=== PATIENT | female | born 1950 | race Caucasian/White ===

== ENCOUNTER 2023-03-30 16:25 | Emergency (ER) | payer OTHER ==
--- OUTSIDE RECORDS SUMMARY | 2023-03-30 16:32 | XMS REPORT | Continuity of Care Document ---
:1950 Author Organization [facility] t Address [address] [place] [address] [place] [id number] Care Team Providers Name Role Phone Alfredo Farnsworth DO Primary Care Physician [phone] Devon MENDES, Majo Harris Attending Clinician Abbie RUBIN, Jim Lynne Attending Clinician [phone] Dulce Heredia MA Attending Clinician Unavailable Ana Sifuentes PA-C Attending Clinician Merrill Chilel MD Attending Clinician [email or web address]_R Attending Clinician Unavailable [email or web address]_R Attending Clinician Unavailable Provider , Not In System Attending Clinician Unavailable Siva MENDES, Rush Jenkins Attending Clinician Talia Corona MA Attending Clinician Unavailable Alfredo Farnsworth Attending Clinician Unavailable [email or web address]_[email or web address]_R Admitting Clinician Unavailable [email or web address]_R Admitting Clinician Unavailable Alfredo Farnsworth Admitting Clinician Unavailable Payers Payer Name Policy Type Policy Number Effective Date Expiration Date Tiana OLIVAS (MEDICARE [id number] 2021 REPLACEMENT PPO) 00:00:00 Problems Condition Condition Condition Status Onset Resolution Last Treating Co mments Source Name Details Category Date Date Treatment Clinician Date 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-L5 00:00: Hospita level level 00 l Spinal Spinal Disease Active [facility] stenosis stenosis 6-24 st of lumbar of lumbar 00:00: Hosp devonte region region 00 l Allergies, Adverse Reactions, Alerts Allergy Allergy Status Severity Reaction(s) Onset Inactive Treating Comm ents Source Name Type Date Date Clinician Neomycin Propensi Active Rash Method i -Bacitra ty to 11-16 st diandra-Poly adverse 00:00: Hospita myxin reaction 00 l s to drug bacitrac DA Active [facility]04 [place] [facility] polymyxi DA [facility] n B 05[facility]04 [place] 00:[facility]: [facility] Penicill DA Active [facility] ins [facility]04 [place] 00:[facility]: d [facility] Bacitrac Propensi Active Swelling Meth fady in ty to 05-04 st adverse 00:00: Hospita reaction 00 l s to drug Neomycin Propensi Active Swelling Meth fady ty to 05-04 st adverse 00:00: Hospita reaction 00 l s to drug Penicill Propensi Active Other (See As a Me thodi ins ty to Comments) 05-[address] adverse 00:00: Hospita reaction 00 l s to drug Polymyxi Propensi Active Swelling Meth fady n B ty to 05-04 st adverse 00:00: Hospita reaction 00 l s to drug neomycin DA Active [facility] 05[facility]04 [place] [facility]: d [facility] bacitrac DA [facility] [place] 00:[facility]: d [facility] polymyxi DA Active [facility] n B 05-04 [place] 00:[facility]: d [facility] Penicill DA Active [facility] ins 05-04 [place] 00:00: d 00 Medical Tyro neomycin DA Active [facility] 05[facility]04 [place] 00:[facility]: d [facility] Morphine Allergy Active [facility] substanc [facility] PENICILL Allergy Active [facility] to Medical sub[facility]anc e Family History Family Member Diagnosis Comments Start Date Stop Date Source Natural brother Cancer [facility] Natural father Cancer [facility] Maternal aunt [facility] Maternal uncle Cancer [facility] Natural mother Cancer [facility] Natural mother Diabetes [facility] Paternal aunt [facility] Social History Social Habit Start Date Stop Date Quantity Comments Source Sexual orientation 2018-10-04 Heterosexual Meth odist 09:39:40 (finding) Hospital Tobacco use and 2023-02-26 2023-02-26 Smokeless tobacco Me [facility]ist exposure 00:00:00 00:00:00 non-user Hospital Alcohol intake 2023-02-26 2023-02-26 Current non-drinker M ethodist 00:00:00 00:00:00 of alcohol Hospital (finding) History of Social 2023-02-26 2023-02-[address] function 00:00:00 00:00:00 Hospital Sex Ass[birth year] At [birth year] F [facility] 00:00:[facility] 00:00:00 Hospital Smoking Status Start Date Stop Date Source Never smoked tobacco [facility] Medications Ordered Filled Start Stop Current Ordering Indication Dosage Frequency Signature Comments Components Source Medication Medication Date Date Medication? Clinician (SIG) Name Name Uro-MP 2022-04 Yes [id number] 1{capsu Q.25D TAKE 1 [facility] 118-10-40.8 1-15 le} CAPSULE BY st -36 mg 00:00: MOUTH FOUR Hospi ta capsule 00 TIMES l DAILY Uro-MP 2022-04 Yes [id number] 1{capsu Q.25D TAKE 1 [facility] 118-10-40.8 1-15 le} CAPSULE BY st -36 mg 00:00: MOUTH FOUR Hospi ta capsule 00 TIMES l DAILY nitrofurant 2022-04 Yes [id number] 50mg QD TAKE 1 [facility] oin 0-[address] (MACRODANTI 00:00: MOUTH Hospi ta N) 50 MG 00 EVERY DAY l capsule nitrofurant 2022-04 Yes [id number] 50mg QD TAKE 1 [facility] oin 0-[address] (MACRODANTI 00:00: MOUTH Hospi ta N) 50 MG 00 EVERY DAY l capsule nitrofurant 2022-04 Yes [id number] 50mg QD TAKE 1 [facility] oin 0-[address] (MACRODANTI 00:00: MOUTH Hospi ta N) 50 MG 00 EVERY DAY l capsule nitrofurant 2022-04 Yes [id number] 50mg QD TAKE 1 [facility] oin 0-[address] (MACRODANTI 00:00: MOUTH Hospi ta N) 50 MG 00 EVERY DAY l capsule VITAMIN B 2022-0 Yes Take by Metho di COMPLEX 8-[address] ORAL 10:56: Hospita 01 l MULTIVIT-SC 2022-0 Yes Take by Met hodi NERALS/FERR 8-[address] OUS FUM 10:56: Hospita (MULTI 01 l VITAMIN ORAL) magnesium 3-0 Yes 500mg QD Take 1 Metho di gluconate 8-[address] (MAGONATE) 10:56: (500 mg Hosp devonte 500 mg 01 total) by l tablet mouth tablet daily. potassium 2023-0 Yes 20meq Q.5D Take 20 Meth fady chloride 8-[address] (KLOR-CON) 10:56: mouth 2 Hosp devonte 20 mEq 01 (two) l packet times a day. ferrous 2023-0 Yes 325mg QD Take 1 [facility] sulfate 325 8-[address] (65 FE) MG 10:56: (325 mg Hosp devonte tablet 01 total) by l mouth daily with breakfast. VITAMIN B 2022-0 Yes Take by Metho di COMPLEX 8-[address] ORAL 10:56: Hospita 01 l MULTIVIT-SC 2022-0 Yes Take by Met hodi NERALS/FERR 8-[address] OUS FUM 10:56: Hospita (MULTI 01 l VITAMIN ORAL) magnesium 2023-0 Yes 500mg QD Take 1 Metho di gluconate 8-[address] (MAGONATE) 10:56: (500 mg Hosp devonte 500 mg 01 total) by l tablet mouth tablet daily. potassium 2023-0 Yes 20meq Q.5D Take 20 Meth fady chloride 8-[address] (KLOR-CON) 10:56: mouth 2 Hosp devonte 20 mEq 01 (two) l packet times a day. ferrous 3-0 Yes 325mg QD Take 1 [facility] sulfate 325 8-[address] (65 FE) MG 10:56: (325 mg Hosp devonte tablet 01 total) by l mouth daily with breakfast. VITAMIN B 2022-0 Yes Take by Metho di COMPLEX 8-[address] ORAL 10:56: Hospita 01 l MULTIVIT-SC 0 Yes Take by Met hodi NERALS/FERR 8-[address] OUS FUM 10:56: Hospita (MULTI 01 l VITAMIN ORAL) magnesium 3-0 Yes 500mg QD Take 1 Metho di gluconate 8-[address] (MAGONATE) 10:56: (500 mg Hosp devonte 500 mg 01 total) by l tablet mouth tablet daily. potassium 2022-0 Yes 20meq Q.5D Take 20 Meth fady chloride 8-[address] (KLOR-CON) 10:56: mouth 2 Hosp devonte 20 mEq 01 (two) l packet times a day. ferrous 2022-0 Yes 325mg QD Take 1 [facility] sulfate 325 8-[address] (65 FE) MG 10:56: (325 mg Hosp devonte tablet 01 total) by l mouth daily with breakfast. VITAMIN B 2022-0 Yes Take by Metho di COMPLEX 8-[address] ORAL 10:56: Hospita 01 l MULTIVIT-SC 0 Yes Take by Met hodi NERALS/FERR 8-[address] OUS FUM 10:56: Hospita (MULTI 01 l VITAMIN ORAL) magnesium 3-0 Yes 500mg QD Take 1 Metho di gluconate 8-[address] (MAGONATE) 10:56: (500 mg Hosp devonte 500 mg 01 total) by l tablet mouth tablet daily. potassium 2023-0 Yes 20meq Q.5D Take 20 Meth fady chloride 8-[address] (KLOR-CON) 10:56: mouth 2 Hosp devonte 20 mEq 01 (two) l packet times a day. ferrous 2023-0 Yes 325mg QD Take 1 [facility] sulfate 325 8-[address] (65 FE) MG 10:56: (325 mg Hosp devonte tablet 01 total) by l mouth daily with breakfast. bijal-mJohnbl 2021-04- No [id number] 1{capsu Q.25D Take 1 [facility] ue-s.phos-p 05-02 le} capsule by s t hsal-hyo 00:00: 00:00 mouth 4 Hospi ta (Uro-MP) 00 :00 (four) l 118-10-40.8 times a -36 mg day. capsule bijal-. 2021-04- No [id number] 1{capsu Q.25D Take 1 [facility] ue-s.phos-p 05-02 le} capsule by s t hsal-hyo 00:00: 00:00 mouth 4 Hospi ta (Uro-MP) 00 :00 (four) l 118-10-40.8 times a -36 mg day. capsule wendy. 2021-04- No [id number] 1{capsu Q.25D Take 1 [facility] ue-s.phos-p 05-02 le} capsule by s hsal-hyo 00:00: 05:59 mouth 4 Hospi ta (Uro-MP) 00 :00 (four) l 118-10-40.8 times a -36 mg day. capsule oxybutynin 2021-04- No [id number] 10mg QD Take 1 [facility] XL 05-02 tablet (10 st (DITROPAN-X 00:00: 05:59 mg total) Hospita L) 10 MG 24 00 :00 by mouth l hr tablet daily. nitrofurant 2021-04- No [id number] 50mg QD Take 1 Methodi oin 05-[address] ([place] 00:00: 05:59 (50 mg Hos jesenia n) 50 MG 00 :00 total) by l capsule mouth daily. [facility] 2021-04- No [id number] 1{capsu Q.25D Take 1 [facility] ue-s.phos-p 05-02 le} capsule by s hsal-hyo 00:00: 05:59 mouth 4 Hospi ta (Uro-MP) 00 :00 (four) l 118-10-40.8 times a -36 mg day. capsule oxybutynin 2021-04- No [id number] 10mg QD Take 1 [facility] XL 05-02 tablet (10 st (DITROPAN-X 00:00: 05:59 mg total) Hospita L) 10 MG 24 00 :00 by mouth l hr tablet daily. nitrofurant 2021-04- No [id number] 50mg QD Take 1 Method[facility] oin 05-[address] ([place] 00:00: 05:59 (50 mg Hos jesenia n) 50 MG 00 :00 total) by l capsule mouth daily. [facility] 2021-04- No [id number] 1{capsu Q.25D Take 1 [facility] ue-s.phos-p 05-02 le} capsule by s t hsal-hyo 00:00: 05:59 mouth 4 Hospi ta (Uro-MP) 00 :00 (four) l 118-10-40.8 times a -36 mg day. capsule oxybutynin 2021-04- No [id number] 10mg QD Take 1 [facility] XL 05-02 tablet (10 st (DITROPAN-X 00:00: 05:59 mg total) Hospita L) 10 MG 24 00 :00 by mouth l hr tablet daily. [facility] 2021-04- No [id number] 1{capsu Q.25D Take 1 [facility] ue-s.phos-p 05-02 le} capsule by s t hsal-hyo 00:00: 05:59 mouth 4 Hospi ta (Uro-MP) 00 :00 (four) l 118-10-40.8 times a -36 mg day. capsule oxybutynin 2021-04- No [id number] 10mg QD Take 1 [facility] XL 05-02 tablet (10 st (DITROPAN-X 00:00: 05:59 mg total) Hospita L) 10 MG 24 00 :00 by mouth l hr tablet daily. oxybutynin 2021-04- No [id number] 10mg QD Take 1 [facility] XL 05-02 tablet (10 st (DITROPAN-X 00:00: 05:59 mg total) Hospita L) 10 MG 24 00 :00 by mouth l hr tablet daily. [facility] 2021-04- No [id number] 1{capsu Q.25D Take 1 [facility] ue-s.phos-p 05-02 le} capsule by s t hsal-hyo 00:00: 05:59 mouth 4 Hospi ta (Uro-MP) 00 :00 (four) l 118-10-40.8 times a -36 mg day. capsule oxybutynin 2021-04- No [id number] 10mg QD Take 1 [facility] XL 05-02 tablet (10 st (DITROPAN-X 00:00: 05:59 mg total) Hospita L) 10 MG 24 00 :00 by mouth l hr tablet daily. nitrofurant 2021-04- No [id number] 50mg QD Take 1 [facility] oin 05-[address] ([place] 00:00: 05:59 (50 mg Hos jesenia n) 50 MG 00 :00 total) by l capsule mouth daily. [facility] 2021-04- No [id number] 1{capsu Q.25D Take 1 [facility] ue-s.phos-p 05-02 le} capsule by s t hsal-hyo 00:00: 05:59 mouth 4 Hospi ta (Uro-MP) 00 :00 (four) l 118-10-40.8 times a -36 mg day. capsule oxybutynin 2021-04- No [id number] 10mg QD Take 1 [facility] XL 05-02 tablet (10 st (DITROPAN-X 00:00: 05:59 mg total) Hospita L) 10 MG 24 00 :00 by mouth l hr tablet daily. nitrofurant 2021-04- No [id number] 50mg QD Take 1 Method[facility] oin 05-[address] ([place] 00:00: 05:59 (50 mg Hos jesenia n) 50 MG 00 :00 total) by l capsule mouth daily. oxybutynin 2021-04- No [id number] 10mg QD Take 1 [facility] XL 05-02 tablet (10 st (DITROPAN-X 00:00: 05:59 mg total) Hospita L) 10 MG 24 00 :00 by mouth l hr tablet daily. nitrofurant 2021-04- No [id number] 50mg QD Take 1 Method[facility] oin 05-[address] ([place] 00:00: 00:00 (50 mg Hos jesenia n) 50 MG 00 :00 total) by l capsule mouth daily. nitrofurant 2021-04- No [id number] 50mg QD Take 1 [facility] oin 05-[address] ([place] 00:00: 00:00 (50 mg Hos jesenia n) 50 MG 00 :00 total) by l capsule mouth daily. nitrofurant 2021-04- No [id number] 50mg QD Take 1 Method[facility] oin 05-[address] ([place] 00:00: 00:00 (50 mg Hos jesenia n) 50 MG 00 :00 total) by l capsule mouth daily. nitrofurant 2021-04 No [id number] 50mg QD Take 1 Method[facility] oin 05-[address] ([place] 00:00: 00:00 (50 mg Hos jesenia n) 50 MG 00 :00 total) by l capsule mouth daily. methen-m.bl 2020-04- No [id number] 1{capsu Q.25D Take 1 [facility] ue-s.phos-p 04-29 le} capsule by s t hsal-hyo 00:00: 00:00 mouth 4 Hospi ta (Uro-MP) 00 :00 (four) l 118-10-40.8 times a -36 mg day. capsule oxybutynin 2020-04- No [id number] 10mg QD Take 1 [facility] XL 04-29 tablet (10 st (DITROPAN-X 00:00: 00:00 mg total) Hospita L) 10 MG 24 00 :00 by mouth l hr tablet daily. nitrofurant 2020-04 No [id number] 50mg QD Take 1 Method[facility] oin 04-[address] ([place] 00:00: 00:00 (50 mg Hos jesenia n) 50 MG 00 :00 total) by l capsule mouth daily. [facility] 2020-04- No [id number] 1{capsu Q.25D Take 1 [facility] ue-s.phos-p 04-29 le} capsule by s t hsal-hyo 00:00: 00:00 mouth 4 Hospi ta (Uro-MP) 00 :00 (four) l 118-10-40.8 times a -36 mg day. capsule oxybutynin 2020-04- No [id number] 10mg QD Take 1 [facility] XL 04-29 tablet (10 st (DITROPAN-X 00:00: 00:00 mg total) Hospita L) 10 MG 24 00 :00 by mouth l hr tablet daily. nitrofurant 2020-04- No [id number] 50mg QD Take 1 Method[facility] oin 04-[address] ([place] 00:00: 00:00 (50 mg Hos jesenia n) 50 MG 00 :00 total) by l capsule mouth daily. [facility] 2020-04- No [id number] 1{capsu Q.25D Take 1 [facility] ue-s.phos-p 04-29 le} capsule by s t hsal-hyo 00:00: 00:00 mouth 4 Hospi ta (Uro-MP) 00 :00 (four) l 118-10-40.8 times a -36 mg day. capsule oxybutynin 2020-04- No [id number] 10mg QD Take 1 [facility] XL 04-29 tablet (10 st (DITROPAN-X 00:00: 00:00 mg total) Hospita L) 10 MG 24 00 :00 by mouth l hr tablet daily. nitrofurant 2020-04- No [id number] 50mg QD Take 1 Method[facility] oin 04-[address] ([place] 00:00: 00:00 (50 mg Hos jesenia n) 50 MG 00 :00 total) by l capsule mouth daily. [facility] 2020-04- No [id number] 1{capsu Q.25D Take 1 [facility] ue-s.phos-p 04-29 le} capsule by s t hsal-hyo 00:00: 00:00 mouth 4 Hospi ta (Uro-MP) 00 :00 (four) l 118-10-40.8 times a -36 mg day. capsule oxybutynin 2020-04- No [id number] 10mg QD Take 1 [facility] XL 04-29 tablet (10 st (DITROPAN-X 00:00: 00:00 mg total) Hospita L) 10 MG 24 00 :00 by mouth l hr tablet daily. nitrofurant 2020-04- No [id number] 50mg QD Take 1 Method[facility] oin 04-[address] ([place] 00:00: 00:00 (50 mg Hos jesenia n) 50 MG 00 :00 total) by l capsule mouth daily. [facility] 2020-04- No [id number] 1{capsu Q.25D Take 1 Method[facility] ue-s.phos-p 04-29 le} capsule by s t hsal-hyo 00:00: 00:00 mouth 4 Hospi ta (Uro-MP) 00 :00 (four) l 118-10-40.8 times a -36 mg day. capsule oxybutynin 2020-04- No [id number] 10mg QD Take 1 [facility] XL 04-29 tablet (10 st (DITROPAN-X 00:00: 00:00 mg total) Hospita L) 10 MG 24 00 :00 by mouth l hr tablet daily. nitrofurant 2020-04- No [id number] 50mg QD Take 1 [facility] oin 04-[address] ([place] 00:00: 00:00 (50 mg Hos jesenia n) 50 MG 00 :00 total) by l capsule mouth daily. [facility] 2020-04- No [id number] 1{capsu Q.25D Take 1 Method[facility] ue-s.phos-p 04-29 le} capsule by s t hsal-hyo 00:00: 00:00 mouth 4 Hospi ta (Uro-MP) 00 :00 (four) l 118-10-40.8 times a -36 mg day. capsule oxybutynin 2020-04- No [id number] 10mg QD Take 1 [facility] XL 04-29 tablet (10 st (DITROPAN-X 00:00: 00:00 mg total) Hospita L) 10 MG 24 00 :00 by mouth l hr tablet daily. nitrofurant 2020-04- No [id number] 50mg QD Take 1 Methodi oin 04-[address] ([place] 00:00: 00:00 (50 mg Hos jesenia n) 50 MG 00 :00 total) by l capsule mouth daily. VITAMIN B 2020-0 Yes Take by Metho di COMPLEX 3-[address] ORAL 11:49: Hospita 17 l MULTIVIT-SC 2020-0 Yes Take by Met hodi NERALS/FERR 3-[address] OUS FUM 11:49: Hospita (MULTI 17 l VITAMIN ORAL) magnesium 2020-0 Yes 500mg QD Take 500 Met hodi gluconate 3-[address] (MAGONATE) 11:49: mouth Hospit a 500 mg 17 daily. l tablet tablet potassium 2020-0 Yes 20meq Q.5D Take 20 Meth fady chloride 3-[address] (KLOR-CON) 11:49: mouth 2 Hosp devonte 20 mEq 17 (two) l packet times a day. ferrous 2020-0 Yes 325mg QD Take 325 Metho di sulfate 325 3-[address] (65 FE) MG 11:49: mouth Hospit a tablet 17 daily with l breakfast. VITAMIN B 2020-0 Yes Take by Metho di COMPLEX 3-[address] ORAL 11:49: Hospita 17 l MULTIVIT-SC 2020-0 Yes Take by Met hodi NERALS/FERR 3-[address] OUS FUM 11:49: Hospita (MULTI 17 l VITAMIN ORAL) magnesium 2020-0 Yes 500mg QD Take 500 Met hodi gluconate 3-[address] (MAGONATE) 11:49: mouth Hospit a 500 mg 17 daily. l tablet tablet potassium 2020-0 Yes 20meq Q.5D Take 20 Meth fady chloride 3-[address] (KLOR-CON) 11:49: mouth 2 Hosp devonte 20 mEq 17 (two) l packet times a day. ferrous 2020-0 Yes 325mg QD Take 325 Metho di sulfate 325 3-[address] (65 FE) MG 11:49: mouth Hospit a tablet 17 daily with l breakfast. VITAMIN B 2020-0 Yes Take by Metho di COMPLEX 3-[address] ORAL 11:49: Hospita 17 l MULTIVIT-SC 2020-0 Yes Take by Met hodi NERALS/FERR 3-[address] OUS FUM 11:49: Hospita (MULTI 17 l VITAMIN ORAL) magnesium 2020-0 Yes 500mg QD Take 500 Met hodi gluconate 3-[address] (MAGONATE) 11:49: mouth Hospit a 500 mg 17 daily. l tablet tablet potassium 2020-0 Yes 20meq Q.5D Take 20 Meth fady chloride 3-[address] (KLOR-CON) 11:49: mouth 2 Hosp devonte 20 mEq 17 (two) l packet times a day. ferrous 2020-0 Yes 325mg QD Take 325 Metho di sulfate 325 3-[address] (65 FE) MG 11:49: mouth Hospit a tablet 17 daily with l breakfast. VITAMIN B 2020-0 Yes Take by Metho di COMPLEX 3-[address] ORAL 11:49: Hospita 17 l MULTIVIT-SC 2020-0 Yes Take by Met hodi NERALS/FERR 3-[address] OUS FUM 11:49: Hospita (MULTI 17 l VITAMIN ORAL) magnesium 2020-0 Yes 500mg QD Take 500 Met hodi gluconate 3-[address] (MAGONATE) 11:49: mouth Hospit a 500 mg 17 daily. l tablet tablet potassium 2020-0 Yes 20meq Q.5D Take 20 Meth fady chloride 3-[address] (KLOR-CON) 11:49: mouth 2 Hosp devonte 20 mEq 17 (two) l packet times a day. ferrous 2020-0 Yes 325mg QD Take 325 Metho di sulfate 325 3-[address] (65 FE) MG 11:49: mouth Hospit a tablet 17 daily with l breakfast. lisinopril Yes 20mg QD Take 20 mg M ethodi (PRINIVIL,Z 7-[address] ESTRIL) 20 00:00: once Hospita mg tablet 00 daily. l lisinopril 2017-0 Yes 20mg QD Take 20 mg M ethodi (PRINIVIL,Z 7-[address] ESTRIL) 20 00:00: once Hospita mg tablet 00 daily. l lisinopril 2017-0 Yes 20mg QD Take 1 Metho di (PRINIVIL,Z 7-07 tablet (20 st ESTRIL) 20 00:00: mg total) Ho spita mg tablet 00 by mouth l once daily. lisinopril 2017-0 Yes 20mg QD Take 1 Metho di (PRINIVIL,Z 7-07 tablet (20 st ESTRIL) 20 00:00: mg total) Ho spita mg tablet 00 by mouth l once daily. lisinopril 2017-0 Yes 20mg QD Take 1 Metho di (PRINIVIL,Z 7-07 tablet (20 st ESTRIL) 20 00:00: mg total) Ho spita mg tablet 00 by mouth l once daily. lisinopril 2017-0 Yes 20mg QD Take 20 mg M ethodi (PRINIVIL,Z 7-[address] ESTRIL) 20 00:00: once Hospita mg tablet 00 daily. l lisinopril 2017-0 Yes 20mg QD Take 20 mg M ethodi (PRINIVIL,Z 7-[address] ESTRIL) 20 00:00: once Hospita mg tablet 00 daily. l lisinopril 2017-0 Yes 20mg QD Take 1 Metho di (PRINIVIL,Z 7-07 tablet (20 st ESTRIL) 20 00:00: mg total) Ho spita mg tablet 00 by mouth l once daily. levothyroxi 2017-0 Yes TAKE 1 Meth fady ne 5-[address] (SYNTHROID, 00:00: MOUTH Hospi ta LEVOXYL) 25 00 EVERY l mcg tablet MORNING ON EMPTY STOMACH levothyroxi 2017-0 Yes TAKE 1 Meth fady ne 5-[address] (SYNTHROID, 00:00: MOUTH Hospi ta LEVOXYL) 25 00 EVERY l mcg tablet MORNING ON EMPTY STOMACH levothyroxi 2017-0 Yes TAKE 1 Meth fady ne 5-[address] (SYNTHROID, 00:00: MOUTH Hospi ta LEVOXYL) 25 00 EVERY l mcg tablet MORNING ON EMPTY STOMACH levothyroxi 2016-0 Yes TAKE 1 Meth fady ne 5-[address] (SYNTHROID, 00:00: MOUTH Hospi ta LEVOXYL) 25 00 EVERY l mcg tablet MORNING ON EMPTY STOMACH levothyroxi Yes TAKE 1 Meth fady ne 5-[address] (SYNTHROID, 00:00: MOUTH Hospi ta LEVOXYL) 25 00 EVERY l mcg tablet MORNING ON EMPTY STOMACH levothyroxi Yes TAKE 1 Meth fady ne 5-[address] (SYNTHROID, 00:00: MOUTH Hospi ta LEVOXYL) 25 00 EVERY l mcg tablet MORNING ON EMPTY STOMACH levothyroxi Yes TAKE 1 Meth fady ne 5-[address] (SYNTHROID, 00:00: MOUTH Hospi ta LEVOXYL) 25 00 EVERY l mcg tablet MORNING ON EMPTY STOMACH levothyroxi Yes TAKE 1 Meth fady ne 5-[address] (SYNTHROID, 00:00: MOUTH Hospi ta LEVOXYL) 25 00 EVERY l mcg tablet MORNING ON EMPTY STOMACH amlodipine amlodipine No amlodipine [facility] 5 mg tablet 5 mg tablet 5 mg M edical tablet estradiol estradiol No estradiol [facility] 0.01% (0.1 0.01% (0.1 0.01% (0.1 Medical mg/gram) mg/gram) mg/gram) vaginal vaginal vaginal cream APPLY cream APPLY cream TO AFFECTED TO AFFECTED APPLY TO AREA EVERY AREA EVERY AFFECTED EVENING FOR EVENING FOR AREA EVERY 3 WEEKS 3 WEEKS EVENING THEN 3 THEN 3 FOR 3 TIMES A TIMES A WEEKS THEN WEEK WEEK 3 TIMES A WEEK Fluzone Fluzone No Fluzone [facility] High-Dose High-Dose High-Dose Medical [id number] (PF) 180 (PF) 180 (PF) 180 mcg/0.5 mL mcg/0.5 mL mcg/0.5 mL intramuscul intramuscul intramuscu ar syringe ar syringe lar TO BE TO BE syringe TO ADMINISTERE ADMINISTERE BE D BY D BY ADMINISTER PHARMACIST PHARMACIST KALYN BY FOR FOR PHARMACIST IMMUNIZATIO IMMUNIZATIO FOR N N IMMUNIZATI ON Fluzone Fluzone No Fluzone [facility] High-Dose High-Dose High-Dose [facility] Quad Quad Quad (PF) 240 (PF) 240 (PF) 240 mcg/0.7 mL mcg/0.7 mL mcg/0.7 mL IM syringe IM syringe IM syringe TO BE TO BE TO BE ADMINISTERE ADMINISTERE ADMINISTER D BY D BY ED BY PHARMACIST PHARMACIST PHARMACIST FOR FOR FOR IMMUNIZATIO IMMUNIZATIO IMMUNIZATI N N ON levothyroxi levothyroxi No levothyrox [facility] ne 25 mcg ne 25 mcg ine 25 mcg Medical tablet TAKE tablet TAKE tablet 1 TABLET BY 1 TABLET BY TAKE 1 MOUTH EVERY MOUTH EVERY TABLET BY DAY IN THE DAY IN THE MOUTH MORNING ON MORNING ON EVERY DAY AN EMPTY AN EMPTY IN THE STOMACH STOMACH MORNING ON AN EMPTY STOMACH lisinopril lisinopril No lisinopril [facility] 20 mg 20 mg 20 mg Medical tablet TAKE tablet TAKE tablet 1 TABLET BY 1 TABLET BY TAKE 1 MOUTH TWICE MOUTH TWICE TABLET BY A DAY A DAY MOUTH TWICE A DAY minocycline minocycline No minocyclin [facility] 100 mg 100 mg e 100 mg Medical capsule capsule capsule mupirocin 2 mupirocin 2 No mupirocin [facility] % topical % topical 2 % Medic al ointment ointment topical ointment Myrbetriq Myrbetriq No 1 Q1D Myrbetriq [facility] 50 mg 50 mg 50 mg Medical tablet,exte tablet,exte tablet,ext nded nded ended release release release Take 1 Take 1 Take 1 tablet tablet tablet every day every day every day by oral by oral by oral route. route. route. nitrofurant nitrofurant No nitrofuran [facility] oin oin toin Medical macrocrysta macrocrysta macrocryst l 50 mg l 50 mg al 50 mg capsule capsule capsule TAKE 1 TAKE 1 TAKE 1 CAPSULE BY CAPSULE BY CAPSULE BY MOUTH DAILY MOUTH DAILY MOUTH DAILY oxybutynin oxybutynin No oxybutynin [facility] chloride ER chloride ER chloride Medical 10 mg 10 mg ER 10 mg tablet,exte tablet,exte tablet,ext nded nded ended release 24 release 24 release 24 hr TAKE 1 hr TAKE 1 hr TAKE 1 TABLET BY TABLET BY TABLET BY MOUTH EVERY MOUTH EVERY MOUTH DAY DAY EVERY DAY tramadol 50 tramadol 50 No tramadol [facility] mg tablet mg tablet 50 mg Medi crystal TAKE 1 TAKE 1 tablet TABLET BY TABLET BY TAKE 1 MOUTH EVERY MOUTH EVERY TABLET BY 12 HOURS 12 HOURS MOUTH NEEDED NEEDED EVERY 12 HOURS NEEDED Uro-MP 118 Uro-MP 118 No Uro-MP 118 [facility] mg-10 mg-10 mg-10 Medical mg-40.8 mg-40.8 mg-40.8 mg-36 mg mg-36 mg mg-36 mg capsule capsule capsule TAKE 1 TAKE 1 TAKE 1 CAPSULE BY CAPSULE BY CAPSULE BY MOUTH FOUR MOUTH FOUR MOUTH FOUR TIMES A DAY TIMES A DAY TIMES A NEEDED NEEDED DAY FOR FOR NEEDED FOR BLADDERA BLADDERA BLADDERA PAIN PAIN PAIN Immunizations Ordered Filled Immunization Date Status Comments Sourc e Immunization Name Name FLUZONE HIGH-DOSE 2019-12-[address] [facility]:00[facility]00 [facility] FLUZONE HIGH-DOSE 2019-12-[address] [facility]:00:00 [facility] FLUZONE HIGH-DOSE 2019-12-[address] 00:00:00 [facility] FLUZOKY HIGH-DOSE 2019-12-18 Completed Methodi [facility] 00:00:00 [facility] FLUZOKY HIGH-DOSE Unknown Completed [facility] FLUZONE HIGH-DOSE Unknown Completed [facility] FLUZONE HIGH-DOSE Unknown Completed [facility] FLUZOKY HIGH-DOSE Unknown Completed [facility] Vital Signs Vital Name Observation Time Observation Value Comments Source BP Diastolic 2022-05-01 00:00:00 90 mm[Hg] [facility] edical Height 2022-05-01 00:00:00 66 [in_i] [facility] BMI (Body Mass 2022-05-01 00:00:00 36.8 kg/m2 [facility] Medical Index) BP Systolic 2022-05-01 00:00:00 148 mm[Hg] [facility] Body Weight 2022-05-01 00:00:00 228 [lb_av] [facility] Body height 2023-02-26 16:26:[address] [facility] Body weight 2023-02-26 16:26:[address] [facility] BMI 2023-02-26 16:26:00 37.12 kg/m2 [facility] Body height 2022-12-18 15:55:[address] [facility] Body weight 2022-12-18 15:55:[address] [facility] BMI 2022-12-18 15:55:00 37.12 kg/m2 [facility] Procedures Procedure Date / Time Performing Clinician Source Performed PROTHROMBIN TIME WITH INR 2023-02-03 12:27:[address] [facility] PARTIAL THROMBOPLASTIN 2023-02-03 12:27:00 OsorioMajo frazier [facility] TIME (PTT) CT LUMBAR SPINE WO 2023-01-04 20:14:24 Ana Sifuentes [facility] CONTRAST MRI LUMBAR SPINE WO 2022-12-22 18:03:[address] [facility] CONTRAST XR LUMBAR SPINE 2 OR 3 VW 2022-12-18 16:01:06 [facility] XR PELVIS 1 OR 2 VW 2022-12-18 16:01:06 [facility] SCREENING MAMMOGRAPHY 2022-05-01 00:00:00 [facility] BOTH BREASTS INCLUDING COMPUTER AIDED DETECTION URINALYSIS SCREEN AND 2022-03-02 17:24:00 [facility] MICROSCOPY, WITH REFLEX [facility] TO CULTURE POC URINALYSIS DIPSTICK 2022-03-02 17:22:52 [facility] URINALYSIS, AUTOMATED 2021-07-02 21:04:00 [facility] WITH MICROSCOPY [facility] URINE CULTURE 2021-06-04 23:32:00 [facility] URINALYSIS SCREEN AND 2021-06-04 20:40:00 [facility] MICROSCOPY, WITH REFLEX [facility] TO CULTURE [id number] 2021-06-04 17:48[facility]INALYS[facility] DIPSTICK 2021-06-04 17:46:00 [facility] Knee Arthroscopy/surgery [facility] Medical Hysterectomy with [facility] Oopherectomy (Ovaries Removed) Plan of Care Planned Activity Planned Date Details Comments Source Future Scheduled Test 2023-03-26 Screening for [facility] 10:06:06 malignant neoplasm of colon (procedure) [code = 040558526] Future Scheduled Test 2023-03-26 Screening for [facility] 10:06:06 malignant neoplasm of colon (procedure) [code = 421689456] Future Scheduled Test 2023-03-26 Screening for [facility] 10:06:06 malignant neoplasm of colon (procedure) [code = 652825826] Future Scheduled Test 2023-03-26 Hepatitis C screening [facility] 10:06:06 (procedure) [code = 140038470] Future Scheduled Test 2023-03-26 [facility] 10:06:06 SCREENING [code = BREAST CANCER SCREENING] Future Scheduled Test 2023-03-26 [facility] 10:06:06 malignant neoplasm of colon (procedure) [code = 777856856] Future Scheduled Test 2023-03-26 Screening for [facility] 10:06:06 malignant neoplasm of colon (procedure) [code = 243856970] Future Scheduled Test 2023-03-26 SHINGLES VACCINES ([address] [facility] 10:06:06 of 2) [code = SHINGLES VACCINES (1 of 2)] Future Scheduled Test 2023-03-26 65+ PNEUMOCOCCAL [facility] 10:06:06 VACCINE (1 - PCV) [code = 65+ PNEUMOCOCCAL VACCINE (1 - PCV)] Future Scheduled Test 2023-03-26 COVID-19 VACCINE (3 - [facility] 10:06:06 season) [code = COVID-19 VACCINE (3 - season)] Future Scheduled Test 2023-03-26 INFLUENZA VACCINE [facility] 10:06:06 (#1) [code = INFLUENZA VACCINE (#1)] Future Scheduled Test 2023-03-11 [facility] 15:21:47 malignant neoplasm of colon (procedure) [code = 640154377] Future Scheduled Test 2023-03-11 [facility] 15:21:47 malignant neoplasm of colon (procedure) [code = 359222306] Future Scheduled Test 2023-03-11 [facility] 15:21:47 malignant neoplasm of colon (procedure) [code = 878013540] Future Scheduled Test 2023-03-11 Hepatitis C screening [facility] 15:21:47 (procedure) [code = 617883072] Future Scheduled Test 2023-03-11 [facility]CER [facility] 15:21:47 SCREENING [code = BREAST CANCER SCREENING] Future Scheduled Test 2023-03-11 [facility] 15:21:47 malignant neoplasm of colon (procedure) [code = 383335714] Future Scheduled Test 2023-03-11 Screening for [facility] 15:21:47 malignant neoplasm of colon (procedure) [code = 045690777] Future Scheduled Test 2023-03-11 SHINGLES VACCINES ([address] [facility] 15:21:47 of 2) [code = SHINGLES VACCINES (1 of 2)] Future Scheduled Test 2023-03-11 65+ PNEUMOCOCCAL [facility] 15:21:47 VACCINE (1 - PCV) [code = 65+ PNEUMOCOCCAL VACCINE (1 - PCV)] Future Scheduled Test 2023-03-11 COVID-19 VACCINE (3 - [facility] 15:21:47 season) [code = COVID-19 VACCINE (3 - season)] Future Scheduled Test 2023-03-11 INFLUENZA VACCINE [facility] 15:21:47 (#1) [code = INFLUENZA VACCINE (#1)] Future Scheduled Test 2023-03-01 [facility] 08:29:28 malignant neoplasm of colon (procedure) [code = 709182036] Future Scheduled Test 2023-03-01 [facility] 08:29:28 malignant neoplasm of colon (procedure) [code = 927156562] Future Scheduled Test 2023-03-01 [facility] 08:29:28 malignant neoplasm of colon (procedure) [code = 286122160] Future Scheduled Test 2023-03-01 Hepatitis C screening [facility] 08:29:28 (procedure) [code = 317511819] Future Scheduled Test 2023-03-01 [facility] 08:29:28 SCREENING [code = BREAST CANCER SCREENING] Future Scheduled Test 2023-03-01 [facility] 08:29:28 malignant neoplasm of colon (procedure) [code = 751514088] Future Scheduled Test 2023-03-01 [facility] 08:29:28 malignant neoplasm of colon (procedure) [code = 559765753] Future Scheduled Test 2023-03-01 SHINGLES VACCINES ([address] [facility] 08:29:28 of 2) [code = SHINGLES VACCINES (1 of 2)] Future Scheduled Test 2023-03-01 65+ PNEUMOCOCCAL [facility] 08:29:28 VACCINE (1 - PCV) [code = 65+ PNEUMOCOCCAL VACCINE (1 - PCV)] Future Scheduled Test 2023-03-01 COVID-19 VACCINE (3 [facility] 08:29:28 season) [code = COVID-19 VACCINE ( season)] Future Scheduled Test 2023-03-01 INFLUENZA VACCINE [facility] 08:29:28 (#1) [code = INFLUENZA VACCINE (#1)] Future Scheduled Test 2023-02-18 [facility] 17:47:07 malignant neoplasm of colon (procedure) [code = 684903326] Future Scheduled Test 2023-02-18 [facility] 17:47:07 malignant neoplasm of colon (procedure) [code = 225649439] Future Scheduled Test 2023-02-18 [facility] 17:47:07 malignant neoplasm of colon (procedure) [code = 766877642] Future Scheduled Test 2023-02-18 Hepatitis C screening [facility] 17:47:07 (procedure) [code = 394101196] Future Scheduled Test 2023-02-18 [facility]CER [facility] 17:47:07 SCREENING [code = BREAST CANCER SCREENING] Future Scheduled Test 2023-02-18 [facility] 17:47:07 malignant neoplasm of colon (procedure) [code = 578087583] Future Scheduled Test 2023-02-18 [facility] 17:47:07 malignant neoplasm of colon (procedure) [code = 790962349] Future Scheduled Test 2023-02-18 SHINGLES VACCINES ([address] [facility] 17:47:07 of 2) [code = SHINGLES VACCINES (1 of 2)] Future Scheduled Test 2023-02-18 65+ PNEUMOCOCCAL [facility] 17:47:07 VACCINE (1 - PCV) [code = 65+ PNEUMOCOCCAL VACCINE (1 - PCV)] Future Scheduled Test 2023-02-18 COVID-19 VACCINE (3 [facility] 17:47:07 season) [code = COVID-19 VACCINE ( season)] Future Scheduled Test 2023-02-18 INFLUENZA VACCINE [facility] 17:47:07 (#1) [code = INFLUENZA VACCINE (#1)] Diagnostic Test 2022-05-01 [place] IgE Ab [facility] Pending 00:00:00 [Units/volume] in Serum [code = 6195-2] Diagnostic Test 2022-05-01 Mucor racemosus IgE [facility] Pending 00:00:00 Ab [Units/volume] in Serum [code = 6182-0] Future Scheduled Test 2022-04-10 Hepatitis C screening [facility] 05:29:22 (procedure) [code = 552634285] Future Scheduled Test 2022-04-10 BREAST CANCER [facility] 05:29:22 SCREENING [code = BREAST CANCER SCREENING] Future Scheduled Test 2022-04-[address] [facility] 05:29:22 [code = COLONOSCOPY SCREENING] Future Scheduled Test 2022-04-10 SHINGLES VACCINES ([address] [place] [address] 05:29:22 of 2) [code = SHINGLES VACCINES (1 of 2)] Future Scheduled Test 2022-04-10 65+ PNEUMOCOCCAL [facility] 05:29:22 VACCINE (1 - PCV) [code = 65+ PNEUMOCOCCAL VACCINE (1 - PCV)] Future Scheduled Test 2022-04-10 COVID-19 VACCINE ([address] [place] [address] 05:29:22 Booster for Moderna series) [code = COVID-19 VACCINE (3 - Booster for Moderna series)] Future Scheduled Test 2022-04-10 INFLUENZA VACCINE [facility] 05:29:22 [code = INFLUENZA VACCINE] Future Scheduled Test 2022-04-10 Hepatitis C screening [facility] 05:29:22 (procedure) [code = 591098026] Future Scheduled Test 2022-04-10 BREAST CANCER [facility] 05:29:22 SCREENING [code = BREAST CANCER SCREENING] Future Scheduled Test 2022-04-[address] [facility] 05:29:22 [code = COLONOSCOPY SCREENING] Future Scheduled Test 2022-04-10 SHINGLES VACCINES ([address] [facility] 05:29:22 of 2) [code = SHINGLES VACCINES (1 of 2)] Future Scheduled Test 2022-04-10 65+ PNEUMOCOCCAL [facility] 05:29:22 VACCINE (1 - PCV) [code = 65+ PNEUMOCOCCAL VACCINE (1 - PCV)] Future Scheduled Test 2022-04-10 COVID-19 VACCINE ([address] [place] [address] 05:29:22 Booster for Moderna series) [code = COVID-19 VACCINE (3 - Booster for Moderna series)] Future Scheduled Test 2022-04-10 INFLUENZA VACCINE [facility] 05:29:22 [code = INFLUENZA VACCINE] Future Scheduled Test 2022-04-10 Hepatitis C screening [facility] 05:29:22 (procedure) [code = 435030098] Future Scheduled Test 2022-04-10 BREAST CANCER [facility] 05:29:22 SCREENING [code = BREAST CANCER SCREENING] Future Scheduled Test 2022-04-[address] [facility] 05:29:22 [code = COLONOSCOPY SCREENING] Future Scheduled Test 2022-04-10 SHINGLES VACCINES ([address] [facility] 05:29:22 of 2) [code = SHINGLES VACCINES (1 of 2)] Future Scheduled Test 2022-04-10 65+ PNEUMOCOCCAL [facility] 05:29:22 VACCINE (1 - PCV) [code = 65+ PNEUMOCOCCAL VACCINE (1 - PCV)] Future Scheduled Test 2022-04-10 COVID-19 VACCINE ([address] [place] [address] 05:29:22 Booster for Moderna series) [code = COVID-19 VACCINE (3 - Booster for Moderna series)] Future Scheduled Test 2022-04-10 INFLUENZA VACCINE [facility] 05:29:22 [code = INFLUENZA VACCINE] Future Scheduled Test 2022-04-10 Hepatitis C screening [facility] 05:29:22 (procedure) [code = 998531498] Future Scheduled Test 2022-04-10 BREAST CANCER [facility] 05:29:22 SCREENING [code = BREAST CANCER SCREENING] Future Scheduled Test 2022-04-[address] [facility] 05:29:22 [code = COLONOSCOPY SCREENING] Future Scheduled Test 2022-04-10 SHINGLES VACCINES ([address] [facility] 05:29:22 of 2) [code = SHINGLES VACCINES (1 of 2)] Future Scheduled Test 2022-04-10 65+ PNEUMOCOCCAL [facility] 05:29:22 VACCINE (1 - PCV) [code = 65+ PNEUMOCOCCAL VACCINE (1 - PCV)] Future Scheduled Test 2022-04-10 COVID-19 VACCINE ([address] [place] [address] 05:29:22 Booster for Moderna series) [code = COVID-19 VACCINE (3 - Booster for Moderna series)] Future Scheduled Test 2022-04-10 INFLUENZA VACCINE [facility] 05:29:22 [code = INFLUENZA VACCINE] Future Appointment 2023-05-01 Carl Singh, [address] 00:00:00 [facility]; [address], [place] [address] Encounters Start End Encounter Admission Attending Care Care Encounter Source Date/Time Date/Time Type Type Clinicians Facility Department ID 2023-03-26 2023-03-26 Office Osorio, 1.2.840.1 [id number] Methodi 10:20:00 11:23:26 Visit Majo Harris 18972.1.1 600 s t 3.430.2.7 Hospit a .3.509986 l .8 2023-03-26 2023-03-26 [facility] [id number] 9[address] [place] 00:00:00 00:00:00 [address] [facility] 2023-03-10 2023-03-10 Reftristan Leiva, 1.2.840.1 [id number] Methodi 00:00:00 00:00:00 Jim 22487.1.1 [address] [facility] 3.430.2.7 Hospit a .3.167279 l .8 2023-03-10 2023-03-10 Reftristan Leiva, 1.2.840.1 [id number] [facility] 00:00:00 00:00:[address] [place] 3.430.2.7 Hospit a .3.484437 l .8 2023-03-02 2023-03-02 Telephone Osorio, 1.2.840.1 [id number] [id number] [facility]i 00:00:00 00:00:00 Majo Harris 92352.1.1 881 s t 3.430.2.7 Hospit a .3.121210 l .8 2023-03-02 2023-03-02 Telephone Osorio, 1.2.840.1 [id number] 2099 [id number] Methodi 00:00:00 00:00:00 Majo Harris 96031.1.1 881 s t 3.430.2.7 Hospit a .3.239397 l .8 2023-02-26 2023-02-26 Office Osorio, 1.2.840.1 [id number] [facility]i 11:00:00 12:04:44 Visit Majo Harris 11922.1.1 905 s t 3.430.2.7 Hospit a .3.032819 l .8 2023-02-26 2023-02-26 Stephan Osorio, 1.2.840.1 [id number] 5051 Methodi 11:00:00 12:04:44 Visit Majo Harris 80767.1.1 905 s t 3.430.2.7 Hospit a .3.708658 l .8 2023-02-15 2023-02-15 Reftristan Leiva, 1.2.840.1 [id number] Methodi 00:00:00 00:00:[address] [facility] 3.430.2.7 Hospit a .3.101416 l .8 2023-02-15 2023-02-15 Reftristan Leiva, 1.2.840.1 [id number] Methodi 00:00:00 00:00:[address] [place] 3.430.2.7 Hospit a .3.944486 l .8 2023-01-11 2023-01-11 Telephone Adam, 1.2.840.1 [id number] 685 [id number] Methodi 00:00:00 00:00:[address] 3.430.2.7 Hospit a .3.252834 l .8 2023-01-11 2023-01-11 Telephone Medina, 1.2.840.1 [id number] Methodi 00:00:00 00:00:[address] 3.430.2.7 Hospit a .3.916402 l .8 2023-01-08 2023-01-08 Stephan Osorio, 1.2.840.1 [id number] Methodi 11:40:00 13:18:24 Visit Majo Harris 46482.1.1 160 s t 3.430.2.7 Hospit a .3.632395 l .8 2023-01-08 2023-01-08 Damon Haynes.2.840.1 [id number] 8776 Methodi 11:40:00 13:18:24 Visit Majo Harris 30586.1.1 160 s t 3.430.2.7 Hospit a .3.483666 l .8 2023-01-04 2023-01-04 Outpatient [facility] [id number] [address] [place] 00:00:00 00:00:[address] 2022-12-29 2022-12-29 Telephone Ana Sifuentes 1.2.840.1 [id number] Methodi 00:00:00 00:00:[address] 3.430.2.7 Hospit a .3.474589 l .8 2022-12-29 2022-12-29 Orders Ana Sifuentes 1.2.840.1 [id number] 21 [id number] [facility]i 00:00:00 00:00:00 Only Cristy 61186.1.[address] 3.430.2.7 Hospit a .3.573619 l .8 2022-12-29 2022-12-29 Orders Ana Sifuentes 1.2.840.1 [id number] 21 [id number] Methodi 00:00:00 00:00:00 Only Cristy 45691.1.[address] 3.430.2.7 Hospit a .3.480909 l .8 2022-12-29 2022-12-29 Telephone Ana Sifuentes 1.2.840.1 [id number] Methodi 00:00:00 00:00:[address] 3.430.2.7 Hospit a .3.050215 l .8 2022-12-24 2022-12-24 Damon Umanzor.2.840.1 [id number] 2100 [id number] Methodi 00:00:00 00:00:00 Majo TaraJohn 22316.1.1 339 s t 3.430.2.7 Hospit a .3.799196 l .8 2022-12-24 2022-12-24 Telephone Devon 1.2.840.1 [id number] 2100 [id number] Methodi 00:00:00 00:00:00 Majo PachecoJohn 61387.1.1 339 s t 3.430.2.7 Hospit a .3.257860 l .8 2022-12-22 2022-12-22 Outpatient [facility] [id number] 207 [place] 00:00:00 00:00:[address] 2022-12-21 2022-12-21 Telephone Ana Sifuentes 1.2.840.1 [id number] Methodi 00:00:00 00:00:[address] 3.430.2.7 Hospit a .3.962291 l .8 2022-12-21 2022-12-21 Telephone Ana Sifuentes 1.2.840.1 [id number] Methodi 00:00:00 00:00:[address] 3.430.2.7 Hospit a .3.770325 l .8 2022-12-18 2022-12-18 Office Ana Sifuentes 1.2.840.1 [id number] 21 [id number] Methodi 11:30:00 11:30:00 Visit Cristy 42733.1.[address] 3.430.2.7 Hospit a .3.292316 l .8 2022-12-18 2022-12-18 Office Ana Sifuentes 1.2.840.1 [id number] 21 [id number] [facility]i 11:30:00 11:30:00 Visit Cristy 27235.1.[address] 3.430.2.7 Hospit a .3.008351 l .8 2022-12-18 2022-12-18 Outpatient [facility] [id number] [address] [place] [address] 00:00:00 00:00:[address] 2022-12-02 2022-12-02 Telephone Jim 1.2.840.1 [id number] 2100 [id number] [facility]i 00:00:00 00:00:[address] 3.430.2.7 Hospit a .3.827682 l .8 2022-12-02 2022-12-02 Telephone Jim 1.2.840.1 [id number] 2100 [id number] [facility] 00:00:00 00:00:[address] 3.430.2.7 Hospit a .3.848372 l .8 2022-05-01 2022-05-01 Outpatient [facility]_ PRIV PRIV 574 7579-20 [facility] 00:00:00 00:00:00 Anding_R [id number] Medic al 2022-05-01 2022-05-01 [facility] 06 [facility] 00:00:00 00:00:00 [facility] Medic sc SUSHILA Singh_OFELIAC_ MD: [address] [facility], [address], [place] [address] , Ph. 2022-04-30 2022-04-30 Outpatient [facility]_ PRIV PRIV 574 7579-20 [facility] 00:00:00 00:00:00 Anding_R [id number] Medic al 2022-04-29 2022-04-29 Outpatient GC_SWHATBIC PRIV PRIV 574 7579-20 [facility] 00:00:00 00:00:00 _Anding_R [id number] [facility] crystal 2022-03-02 2022-03-02 [facility], 1.2.840.1 [id number] [facility] 11:00:00 11:15:00 Visit Jim 88639.1.1 [facility] 3.430.2.7 Hospit a .3.531228 l .8 2022-02-23 2022-02-23 Outpatient [facility]_ PRIV PRIV 574 7579-20 [facility] 00:00:00 00:00:00 Anding_R [id number] Medic al 2021-06-04 2021-06-10 Office Abbie, 1.2.840.1 [id number] [id number] [facility]i 11:15:00 14:22:28 Visit Jim 91899.1.[address] [place] 3.430.2.7 Hospit a .3.747459 l .8 2021-06-04 2021-06-04 Lab Provider, Not In System 1.2.840.1 [id number] [facility]i 14:40:00 14:45:00 Rush Paniagua 78922.1.[address] 3.430.2.7 Hospit a .3.900958 l .8 2021-06-04 2021-06-04 Travel 1.2.840.1 1.2.648.736 0808 [id number] [facility] 00:00:00 00:00:[address] 3.430.2.7 0.2.7.3.698 spita .3.712115 084.8 l .8 2021-06-03 2021-06-03 Telephone Cj, 1.2.840.1 [id number] 958 [id number] [facility] 00:00:00 00:00:[address] 3.430.2.7 Hospit a .3.264019 l .8 2021-06-02 2021-06-02 Telephone Abbie, 1.2.840.1 [id number] [id number] [facility] 00:00:00 00:00:[address] [place] 3.430.2.7 Hospit a .3.253628 l .8 2021-03-01 2021-03-01 Outpatient [facility]_ PRIV PRIV 574 7579-20 [facility] 00:00:00 00:00:00 Anding_R [id number] Medic al 2021-02-27 2021-02-27 Outpatient [facility] [id number] 222 [place] 00:00:00 00:00:[address] 2020-01-05 2020-01-05 [facility] [id number] 081 [place] 00:00:00 00:00:00 MERRILL 631 Method i 2019-07-03 2019-07-03 Outpatient JIM [facility] [id number] [place] 00:00:00 00:00:00 MERRILL [address] 2019-05-03 2019-05-03 Outpatient MARY GRACE Farnsworth RADI [id number] [facility] 12:00:00 12:00:00 Alfredo 32 [facility] Results Test Description Test Time Test Comments Results Result Comments Source Prothrombin time with INR 2023-02-03 16:21:00 Test Item Value Reference Range Interpretation Comme nts INR (test code = 1.0 Reference R susan 6301-6) 0.9-1.1Moderate -intensity Warfarin Therap y 2.0-3.0Higher-i ntensity Warfarin Therapy 3.0-4.0 Prothrombin time 10.9 See_Comme For additio nal information, (test code = 5902-2) nt please refer tohttp://bfinance [employer]/faq/FAQ1 04(This link is being provided for informational/e ducational purposes only.) [Automated message] The sy stem which generated this result transmitted reference range : 9.0 - 11.5 sec. The reference r susan was not used to interpret th is result as normal/abnormal . BARBARA (test code = STAT BARBARA) RAC (test code = Performing RAC) Organization Information: Site ID: RGA Name: [facility] Address: [address] [place] [id number] Director: Mary Blankenship [facility], [id number] 16:21:00 Test Item Value Reference Interpretation Comments Range PTT (test 27 See_Comment This test has [place] been code = [place] [address]-5) monitoringunfra ctionated heparin therapy . For testing thatis validate d for this type of therapy , please referto the Hep joby Anti-Xa assay (test cod e [id number]). For additional info rmation, please refer tohttp://M-Audio/faq/ YRS187(This link is being p rovided for informational/e ducational purposes only.) [Automated message] The sy stem which generated this result transmitted ref erence range: 23 - 32 sec. Th e reference range was not u sed to interpret this result as normal/abnormal . BARBARA (test STAT code = BARBARA) RAC (test Performing code = Organization RAC) Information: Site ID: ELÍAS [facility] Address: [address] [place], [place] [id number] Director[facility]throm[facility] time with MGJ0131-10-09 16:21:00 Test Item Value Reference Range Interpretation Comments INR (test code = 1.0 Reference R susan 6301-6) 0.9-1.1Moderate -i ntensity Warfar in Therapy 2.0-3.0Higher-i nt ensity Warfarin Therapy 3.0-4.0 Prothrombin time 10.9 See_Comment For additio nal (test code = information, 5902-2) please refer [email or web address] 4( This link is being provided for informational/e du cational purpos es only.) [Automat ed message] The system which generated this result transmitted reference range : 9.0 - 11.5 sec. The reference range was not used to interpr et this result as normal/abnormal . BARBARA (test code = STAT BARBARA) RAC (test code = Performing RAC) Organization Information: Site ID: ELÍAS Name: [facility] Address: [address] [place] [address] [facility], [id number] 16:21:00 Test Item Value Reference Interpretation Comments Range PTT (test 27 See_Comment This test has not been code = [place] [address]-5) monitoringunfra ctionated heparin therapy . For testing thatis validate d for this type of therapy , please referto the Hep joby Anti-Xa assay ([place] e [address]). For additional info rmation, please refer tohttp://[facility]/faq/ QQF106(This link is being p rovided for informational/e ducational purposes only.) [Automated message] The sy stem which generated this result transmitted ref erence range: 23 - 32 sec. Th e reference range was not u sed to interpret this result as normal/abnormal . BARBARA (test STAT code = BARBARA) RAC (test Performing code = Organization RAC) Information: Site ID: ELÍAS Name: [facility] Address: [address] [place] [address] Director[facility] Troy[facility]thrombin time with [id number] 16:21:00 Test Item Value Reference Range Interpretation Comments INR (test code = 1.0 Reference R susan 6301-6) 0.9-1.1Moderate -i ntensity Warfar in Therapy 2.0-3.0Higher-i nt ensity Warfarin Therapy 3.0-4.0 Prothrombin time 10.9 See_Comment For additio nal (test code = information, 5902-2) please refer tohttp://[employer]/faq/FAQ10 4( This link is being provided for informational/e du cational purpos es only.) [Automat ed message] The system which generated this result transmitted reference range : 9.0 - 11.5 sec. The reference range was not used to interpr et this result as normal/abnormal . BARBARA (test code = STAT BARBARA) RAC (test code = Performing RAC) Organization Information: Site ID: ELÍAS Name: [facility] Address: [address] [place] [address] Director[facility] thromboplastin time, [id number] 16:21:00 Test Item Value Reference Interpretation Comments Range PTT (test 27 See_Comment This test has not been code = [place] [address]-3) monitoringunfra ctionated heparin therapy . For testing thatis validate d for this type of therapy , please referto the Hep joby Anti-Xa assay ([place] [address]). For additional info rmation, please refer tohttp://[facility] [facility]/faq/ NTY263(This link is being p rovided for informational/e ducational purposes only.) [Automated message] The sy stem which generated this result transmitted ref erence range: 23 - 32 sec. Th e reference range was not u sed to interpret this result as normal/abnormal . BARBARA (test STAT code = BARBARA) RAC (test Performing code = Organization RAC) Information: Site ID: ELÍAS Name: [facility] Address: [address] [place] [address] Director: [facility] TroyProthrombin time with [id number] 16:21:00 Test Item Value Reference Range Interpretation Comments INR (test code = 1.0 Reference R susan 6301-6) 0.9-1.1Moderate -i ntensity Warfar in Therapy 2.0-3.0Higher-i nt ensity Warfarin Therapy 3.0-4.0 Prothrombin time 10.9 See_Comment For additio nal (test code = information, 5902-2) please refer tohttp://[employer]/faq/FAQ10 4( This link is being provided for informational/e du cational purpos es only.) [Automat ed message] The system which generated this result transmitted reference range : 9.0 - 11.5 sec. The reference range was not used to interpr et this result as normal/abnormal . BARBARA (test code = STAT BARBARA) RAC (test code = Performing RAC) Organization Information: Site ID: ELÍAS Name: [facility] Address: [address] [place] [address] Director[facility] thromboplastin [facility], [id number] 16:21:00 Test Item Value Reference Interpretation Comments Range PTT (test 27 See_Comment This test has not been code = validated for [address]-5) monitoringunfra ctionated heparin therapy . For testing thatis validate d for this type of therapy , please referto the Hep joby Anti-Xa assay ([place] [address]). For additional info rmation, please refer tohttp://[employer]at ion.[employer]/faq/ XNM384(This link is being p rovided for informational/e ducational purposes only.) [Automated message] The sy stem which generated this result transmitted ref erence range: 23 - 32 sec. Th e reference range was not u sed to interpret this result as normal/abnormal . BARBARA (test STAT code = BARBARA) RAC (test Performing code = Organization RAC) Information: Site ID: RGA Name: [facility] Address: [address] [place] [phone] Director: [facility], with reflex to culture 2022-03-04 15:35:00 Test Item Value Reference Range Interpretation Comments Color, UA (test code BLUE YELLOW A = 5778-6) Appearance (test CLEAR CLEAR code = 5767-9) WBC, UA (test code = 10-20 See_Comment A [Autom ated 5821-4) message] The system which generated this result transmitted reference range : < OR = 5 /HPF. The reference range was not used to interpr et this result as normal/abnormal . RBC, UA (test code = 0-2 See_Comment [Autom ated 47570-1) message] The system which generated this result transmitted reference range : < OR = 2 /HPF. The reference range was not used to interpr et this result as normal/abnormal . Squamous epithelial 0-5 See_Comment [Automa jose cells, UA (test code message ] The = 79703-0) system which generated this result transmitted reference range : < OR = 5 /HPF. The reference range was not used to interpr et this result as normal/abnormal . Bacteria, UA (test NONE SEEN NONE SEEN /HPF code = 5769-5) Hyaline casts, UA NONE SEEN NONE SEEN /LPF (test code = 5796-8) Note: (test code = This urin e was 8251-1) analyzed for th e presence of WBC , RBC, bacteria, casts, and othe r formed elements . Only those elements seen were reported. Specific gravity, TNP TEST(S) N OT urine (test code = PERFORMED : 5811-5) SPECIFIC GRAVIT Y PH GLUCOSE BILIRUBIN KETON ES OCCULT BLOOD PROTEIN NITRITE LEUKOCYTE ESTERASE TEST N OT PERFORMED Unabl e to perform testingdue to color interference. Urine culture (test SEE NOTE CULTURE , URINE, code = 630-4) ROUTINE Micro Number: [id number] 0 Test Status: Final Specimen Source: Urine Specimen Qualit y: Adequate Resul t: 10,000-49,000 CFU/mL of Non-uropathogen ic Gram positive organism May represent colonizers from external and internal genitalia. No further testing (including susceptibility) will be performed. RAC (test code = Performing RAC) Organization Information: Site ID: RGA Name: [facility] Address: [address] [place] [phone] Director: Carl Damico Lab Interpretation Abnormal (test code = 16938-0) [facility], [facility] reflex to culture 2022-03-04 15:35:00 Test Item Value Reference Range Interpretation Comments Color, UA (test code BLUE YELLOW A = 5778-6) Appearance (test CLEAR CLEAR code = 5767-9) WBC, UA (test code = 10-20 See_Comment A [Autom ated 5821-4) message] The system which generated this result transmitted reference range : < OR = 5 /HPF. The reference range was not used to interpr et this result as normal/abnormal . RBC, UA (test code = 0-2 See_Comment [Autom ated 19303-8) message] The system which generated this result transmitted reference range : < OR = 2 /HPF. The reference range was not used to interpr et this result as normal/abnormal . Squamous epithelial 0-5 See_Comment [Automa jose cells, UA (test code message ] The = 39701-1) system which generated this result transmitted reference range : < OR = 5 /HPF. The reference range was not used to interpr et this result as normal/abnormal . Bacteria, UA (test NONE SEEN NONE SEEN /HPF code = 5769-5) Hyaline casts, UA NONE SEEN NONE SEEN /LPF (test code = 5796-8) Note: (test code = This urin e was 8251-1) analyzed for th e presence of WBC , RBC, bacteria, casts, and othe r formed elements . Only those elements seen were reported. Specific gravity, TNP TEST(S) N OT urine (test code = PERFORMED : 5811-5) SPECIFIC GRAVIT Y PH GLUCOSE BILIRUBIN KETON ES OCCULT BLOOD PROTEIN NITRITE LEUKOCYTE ESTERASE TEST N OT PERFORMED Unabl e to perform testingdue to color interference. Urine culture (test SEE NOTE CULTURE , URINE, code = 630-4) ROUTINE Micro Number: [id number] 0 Test Status: Final Specimen Source: Urine Specimen Qualit y: Adequate Result : 10,000-49,000 CFU/mL of Non-uropathogen ic Gram positive organism May represent colonizers from external and internal genitalia. No further testing (including susceptibility) will be performed. RAC (test code = Performing RAC) Organization Information: Site ID: TANIA Name: [facility] Address: [address] [place] [address] Director: Carl Damico Lab Interpretation Abnormal (test code = 84786-7) [facility], with reflex to culture 2022-03-04 15:35:00 Test Item Value Reference Range Interpretation Comments Color, UA (test code BLUE YELLOW A = 5778-6) Appearance (test CLEAR CLEAR code = 5767-9) WBC, UA (test code = 10-20 See_Comment A [Autom ated 5821-4) message] The system which generated this result transmitted reference range : < OR = 5 /HPF. The reference range was not used to interpr et this result as normal/abnormal . RBC, UA (test code = 0-2 See_Comment [Autom ated 87250-6) message] The system which generated this result transmitted reference range : < OR = 2 /HPF. The reference range was not used to interpr et this result as normal/abnormal . Squamous epithelial 0-5 See_Comment [Automa jose cells, UA (test code message ] The = 21317-9) system which generated this result transmitted reference range : < OR = 5 /HPF. The reference range was not used to interpr et this result as normal/abnormal . Bacteria, UA (test NONE SEEN NONE SEEN /HPF code = 5769-5) Hyaline casts, UA NONE SEEN NONE SEEN /LPF (test code = 5796-8) Note: (test code = This urin e was 8251-1) analyzed for th e presence of WBC , RBC, bacteria, casts, and othe r formed elements . Only those elements seen were reported. Specific gravity, TNP TEST(S) N OT urine (test code = PERFORMED : 5811-5) SPECIFIC GRAVIT Y PH GLUCOSE BILIRUBIN KETON ES OCCULT BLOOD PROTEIN NITRITE LEUKOCYTE ESTERASE TEST N OT PERFORMED Unabl e to perform testingdue to color interference. Urine culture (test SEE NOTE CULTURE , URINE, code = 630-4) ROUTINE Micro Number: [id number] 0 Test Status: Final Specimen Source: Urine Specimen Qualit y: Adequate Result : 10,000-49,000 CFU/mL of Non-uropathogen ic Gram positive organism May represent colonizers from external and internal genitalia. No further testing (including susceptibility) will be performed. RAC (test code = Performing RAC) Organization Information: Site ID: RGA Name: [facility] Address: [address] [place] [phone] Director: Carl Damico Lab Interpretation Abnormal (test code = 21650-6) [facility], with reflex to culture 2022-03-04 15:35:00 Test Item Value Reference Range Interpretation Comments Color, UA (test code BLUE YELLOW A = 5778-6) Appearance (test CLEAR CLEAR code = 5767-9) WBC, UA (test code = 10-20 See_Comment A [Autom ated 5821-4) message] The system which generated this result transmitted reference range : < OR = 5 /HPF. The reference range was not used to interpr et this result as normal/abnormal . RBC, UA (test code = 0-2 See_Comment [Autom ated 40799-1) message] The system which generated this result transmitted reference range : < OR = 2 /HPF. The reference range was not used to interpr et this result as normal/abnormal . Squamous epithelial 0-5 See_Comment [Automa jose cells, UA (test code message ] The = 81527-9) system which generated this result transmitted reference range : < OR = 5 /HPF. The reference range was not used to interpr et this result as normal/abnormal . Bacteria, UA (test NONE SEEN NONE SEEN /HPF code = 5769-5) Hyaline casts, UA NONE SEEN NONE SEEN /LPF (test code = 5796-8) Note: (test code = This urin e was 8251-1) analyzed for th e presence of WBC , RBC, bacteria, casts, and othe r formed elements . Only those elements seen were reported. Specific gravity, TNP TEST(S) N OT urine (test code = PERFORMED : 5811-5) SPECIFIC GRAVIT Y PH GLUCOSE BILIRUBIN KETON ES OCCULT BLOOD PROTEIN NITRITE LEUKOCYTE ESTERASE TEST N OT PERFORMED Unabl e to perform testingdue to color interference. Urine culture (test SEE NOTE CULTURE , URINE, code = 630-4) ROUTINE Micro Number: [id number] 0 Test Status: Final Specimen Source: Urine Specimen Qualit y: Adequate Result : 10,000-49,000 CFU/mL of Non-uropathogen ic Gram positive organism May represent colonizers from external and internal genitalia. No further testing (including susceptibility) will be performed. RAC (test code = Performing RAC) Organization Information: Site ID: RGA Name: [facility] Address: [address] [place] [phone] Director: Carl Damico Lab Interpretation Abnormal (test code = 53734-3) [facility], with reflex to culture 2022-03-04 15:35:00 Test Item Value Reference Range Interpretation Comments Color, UA (test code BLUE YELLOW A = 5778-6) Appearance (test CLEAR CLEAR code = 5767-9) WBC, UA (test code = 10-20 See_Comment A [Autom ated 5821-4) message] The system which generated this result transmitted reference range : < OR = 5 /HPF. The reference range was not used to interpr et this result as normal/abnormal . RBC, UA (test code = 0-2 See_Comment [Autom ated 31681-0) message] The system which generated this result transmitted reference range : < OR = 2 /HPF. The reference range was not used to interpr et this result as normal/abnormal . Squamous epithelial 0-5 See_Comment [Automa jose cells, UA (test code message ] The = 30855-9) system which generated this result transmitted reference range : < OR = 5 /HPF. The reference range was not used to interpr et this result as normal/abnormal . Bacteria, UA (test NONE SEEN NONE SEEN /HPF code = 5769-5) Hyaline casts, UA NONE SEEN NONE SEEN /LPF (test code = 5796-8) Note: (test code = This urin e was 8251-1) analyzed for th e presence of WBC , RBC, bacteria, casts, and othe r formed elements . Only those elements seen were reported. Specific gravity, TNP TEST(S) N OT urine (test code = PERFORMED : 5811-5) SPECIFIC GRAVIT Y PH GLUCOSE BILIRUBIN KETON ES OCCULT BLOOD PROTEIN NITRITE LEUKOCYTE ESTERASE TEST N OT PERFORMED Unabl e to perform testingdue to color interference. Urine culture (test SEE NOTE CULTURE , URINE, code = 630-4) ROUTINE Micro Number: [id number] 0 Test Status: Final Specimen Source: Urine Specimen Qualit y: Adequate Result : 10,000-49,000 CFU/mL of Non-uropathogen ic Gram positive organism May represent colonizers from external and internal genitalia. No further testing (including susceptibility) will be performed. RAC (test code = Performing RAC) Organization Information: Site ID: ELÍAS Name: [facility] Address: [address] [place] [phone] Director: Carl Damico Lab Interpretation Abnormal (test code = 94861-1) [facility], with reflex to culture 2022-03-04 15:35:00 Test Item Value Reference Range Interpretation Comments Color, UA (test code BLUE YELLOW A = 5778-6) Appearance (test CLEAR CLEAR code = 5767-9) WBC, UA (test code = 10-20 See_Comment A [Autom ated 5821-4) message] The system which generated this result transmitted reference range : < OR = 5 /HPF. The reference range was not used to interpr et this result as normal/abnormal . RBC, UA (test code = 0-2 See_Comment [Autom ated 13153-2) message] The system which generated this result transmitted reference range : < OR = 2 /HPF. The reference range was not used to interpr et this result as normal/abnormal . Squamous epithelial 0-5 See_Comment [Automa jose cells, UA (test code message ] The = 58475-3) system which generated this result transmitted reference range : < OR = 5 /HPF. The reference range was not used to interpr et this result as normal/abnormal . Bacteria, UA (test NONE SEEN NONE SEEN /HPF code = 5769-5) Hyaline casts, UA NONE SEEN NONE SEEN /LPF (test code = 5796-8) Note: (test code = This urin e was 8251-1) analyzed for th e presence of WBC , RBC, bacteria, casts, and othe r formed elements . Only those elements seen were reported. Specific gravity, TNP TEST(S) N OT urine (test code = PERFORMED : 5811-5) SPECIFIC GRAVIT Y PH GLUCOSE BILIRUBIN KETON ES OCCULT BLOOD PROTEIN NITRITE LEUKOCYTE ESTERASE TEST N OT PERFORMED Unabl e to perform testingdue to color interference. Urine culture (test SEE NOTE CULTURE , URINE, code = 630-4) ROUTINE Micro Number: [id number] 0 Test Status: Final Specimen Source: Urine Specimen Qualit y: Adequate Result : 10,000-49,000 CFU/mL of Non-uropathogen ic Gram positive organism May represent colonizers from external and internal genitalia. No further testing (including susceptibility) will be performed. RAC (test code = Performing RAC) Organization Information: Site ID: RGA Name: [facility] Address: [address] [place] [phone] Director: Carl Damico Lab Interpretation Abnormal (test code = 75072-5) [facility] urinalysis [id number] 17:22:52 Test Item Value Reference Range Interpretation Comments Color urine, POC Blue (test code = 9535117) Clarity urine, POC Slightly Cloudy (test code = 6340520) Glucose urine, POC Negative Negative (test code = 8728671) Bilirubin urine, POC Positive Negative A (test code = 2372320) Ketones urine, POC Negative Negative (test code = 9554390) Specific gravity 1.005-1.030 urine, POC (test code = 4067580) Blood urine, POC Trace Negative A (test code = 3705861) pH urine, POC (test See_Comment [Automa jose code = 2121199) message] The system which generated this result transmit jose reference range : 5.0, 5.5, 6.0, 6.5, 7.0, 7.5, 8.0, 8.5. The reference range was not used to interpret this result as normal/abnormal . Protein urine, POC Negative Negative (test code = 0425133) Urobilinogen urine, <2.0 See_Comment [Automa jose POC (test code = message] Th e 0694090) system which generated this result transmit jose reference range : <=2.0. The reference range was not used to interpret this result as normal/abnormal . Nitrite urine, POC Negative Negative (test code = 3743853) Leukocyte esterase Small Negative A urine, POC (test code = 5102972) Lab Interpretation Abnormal (test code = 53230-8) [facility] urinalysis [id number] 17:22:52 Test Item Value Reference Range Interpretation Comments Color urine, POC Blue (test code = 2498201) Clarity urine, POC Slightly Cloudy (test code = 4175909) Glucose urine, POC Negative Negative (test code = 5381947) Bilirubin urine, POC Positive Negative A (test code = 2628277) Ketones urine, POC Negative Negative (test code = 4935388) Specific gravity 1.005-1.030 urine, POC (test code = 3476568) Blood urine, POC Trace Negative A (test code = 4814845) pH urine, POC (test See_Comment [[employer] jose code = 5655015) message] The system which generated this result transmit jose reference range : 5.0, 5.5, 6.0, 6.5, 7.0, 7.5, 8.0, 8.5. The reference range was not used to interpret this result as normal/abnormal . Protein urine, POC Negative Negative (test code = 3264425) Urobilinogen urine, <2.0 See_Comment [[employer] jose POC (test code = message] e 3460127) system which generated this result transmit jose reference range : <=2.0. The reference range was not used to interpret this result as normal/abnormal . Nitrite urine, POC Negative Negative (test code = 0094447) Leukocyte esterase Small Negative A urine, POC (test code = 2733241) Lab Interpretation Abnormal (test code = 06409-9) [facility] urinalysis [id number] 17:22:52 Test Item Value Reference Range Interpretation Comments Color urine, POC Blue (test code = 4986348) Clarity urine, POC Slightly Cloudy (test code = 3532132) Glucose urine, POC Negative Negative (test code = 0506418) Bilirubin urine, POC Positive Negative A (test code = 4226549) Ketones urine, POC Negative Negative (test code = 2514-8) Specific gravity 1.020 1.005-1.030 urine, POC (test code = 5811-5) Blood urine, POC Trace Negative A (test code = 0497271) pH urine, POC (test 5.5 See_Comment [Appniquea jose code = 5803-2) message] The system which generated this result transmit jose reference range : 5.0, 5.5, 6.0, 6.5, 7.0, 7.5, 8.0, 8.5. The reference range was not used to interpret this result as normal/abnormal . Protein urine, POC Negative Negative (test code = 06862-5) Urobilinogen urine, <2.0 <=2.0 POC (test code = 57981-2) Nitrite urine, POC Negative Negative (test code = 5802-4) Leukocyte esterase Small Negative A urine, POC (test code = 5760507) Lab Interpretation Abnormal (test code = 78637-3) [facility] urinalysis [id number] 17:22:52 Test Item Value Reference Range Interpretation Comments Color urine, POC Blue (test code = 4304381) Clarity urine, POC Slightly Cloudy (test code = 1111527) Glucose urine, POC Negative Negative (test code = 3094320) Bilirubin urine, POC Positive Negative A (test code = 6184276) Ketones urine, POC Negative Negative (test code = 2514-8) Specific gravity 1.020 1.005-1.030 urine, POC (test code = 5811-5) Blood urine, POC Trace Negative A (test code = 1489475) pH urine, POC (test 5.5 See_Comment [Automa jose code = 5803-2) message] The system which generated this result transmit jose reference range : 5.0, 5.5, 6.0, 6.5, 7.0, 7.5, 8.0, 8.5. The reference range was not used to interpret this result as normal/abnormal . Protein urine, POC Negative Negative (test code = 56464-8) Urobilinogen urine, <2.0 <=2.0 POC (test code = 74854-5) Nitrite urine, POC Negative Negative (test code = 5802-4) Leukocyte esterase Small Negative A urine, POC (test code = 1071377) Lab Interpretation Abnormal (test code = 34051-3) [facility] urinalysis [id number] 17:22:52 Test Item Value Reference Range Interpretation Comments Color urine, POC Blue (test code = 4866715) Clarity urine, POC Slightly Cloudy (test code = 1913425) Glucose urine, POC Negative Negative (test code = 8753056) Bilirubin urine, POC Positive Negative A (test code = 0006714) Ketones urine, POC Negative Negative (test code = 8966794) Specific gravity 1.005-1.030 urine, POC (test code = 9069468) Blood urine, POC Trace Negative A (test code = 1966543) pH urine, POC (test See_Comment [Automa jose code = 5324164) message] The system which generated this result transmit jose reference range : 5.0, 5.5, 6.0, 6.5, 7.0, 7.5, 8.0, 8.5. The reference range was not used to interpret this result as normal/abnormal . Protein urine, POC Negative Negative (test code = 4507920) Urobilinogen urine, <2.0 See_Comment [Automa jose POC (test code = message] Th e 0402904) system which generated this result transmit jose reference range : <=2.0. The reference range was not used to interpret this result as normal/abnormal . Nitrite urine, POC Negative Negative (test code = 0916464) Leukocyte esterase Small Negative A urine, POC (test code = 7378354) Lab Interpretation Abnormal (test code = 98650-7) [facility] urinalysis [id number] 17:22:52 Test Item Value Reference Range Interpretation Comments Color urine, POC Blue (test code = 2234120) Clarity urine, POC Slightly Cloudy (test code = 6793647) Glucose urine, POC Negative Negative (test code = 1521957) Bilirubin urine, POC Positive Negative A (test code = 2485014) Ketones urine, POC Negative Negative (test code = 2666834) Specific gravity 1.005-1.030 urine, POC (test code = 2765565) Blood urine, POC Trace Negative A (test code = 9011112) pH urine, POC (test See_Comment [Automa jose code = 7179321) message] The system which generated this result transmit jose reference range : 5.0, 5.5, 6.0, 6.5, 7.0, 7.5, 8.0, 8.5. The reference range was not used to interpret this result as normal/abnormal . Protein urine, POC Negative Negative (test code = 3872833) Urobilinogen urine, <2.0 See_Comment [Automa jose POC (test code = message] Th e 8574707) system which generated this result transmit jose reference range : <=2.0. The reference range was not used to interpret this result as normal/abnormal . Nitrite urine, POC Negative Negative (test code = 0876687) Leukocyte esterase Small Negative A urine, POC (test code = 2187193) Lab Interpretation Abnormal (test code = 30732-0) [facility] with [id number] 11:16:00 Test Item Value Reference Range Interpretation Comments Color, UA (test code GREEN YELLOW A = 5778-6) Appearance (test CLEAR CLEAR code = 5767-9) WBC, UA (test code = 0-5 See_Comment [Autom ated 5821-4) message] The system which generated this result transmitted reference range : < OR = 5 /HPF. The reference range was not used to interpr et this result as normal/abnormal . RBC, UA (test code = NONE SEEN See_Comment [Autom ated 59963-9) message] The system which generated this result transmitted reference range : < OR = 2 /HPF. The reference range was not used to interpr et this result as normal/abnormal . Squamous epithelial 0-5 See_Comment [Automa jose cells, UA (test code message ] The = 42452-1) system which generated this result transmitted reference range : < OR = 5 /HPF. The reference range was not used to interpr et this result as normal/abnormal . Bacteria, UA (test FEW NONE SEEN /HPF A code = 5769-5) Calcium oxalate MODERATE NONE OR FEW A crystals, UA (test /HPF code = 71649-3) Hyaline casts, UA NONE SEEN NONE SEEN /LPF (test code = 5796-8) Note: (test code = This urin e was 8251-1) analyzed for e presence of WBC , RBC, bacteria, casts, and othe r formed elements . Only those elements seen were reported. Specific gravity, TNP TEST(S) N OT urine (test code = PERFORMED : 5811-5) SPECIFIC GRAVIT Y PH GLUCOSE BILIRUBIN KETON ES OCCULT BLOOD PROTEIN NITRITE LEUKOCYTE ESTERASE TEST N OT PERFORMED Unabl e to perform testingdue to color interference. RAC (test code = Performing RAC) Organization Information: Site ID: ELÍAS Name: [facility] Address: [address] [place] [address] Director: Carl Damico Lab Interpretation Abnormal (test code = 87063-8) [facility] automated with [id number] 11:16:00 Test Item Value Reference Range Interpretation Comments Color, UA (test code GREEN YELLOW A = 5778-6) Appearance (test CLEAR CLEAR code = 5767-9) WBC, UA (test code = 0-5 See_Comment [Autom ated 5821-4) message] The system which generated this result transmitted reference range : < OR = 5 /HPF. The reference range was not used to interpr et this result as normal/abnormal . RBC, UA (test code = NONE SEEN See_Comment [Autom ated 37862-8) message] The system which generated this result transmitted reference range : < OR = 2 /HPF. The reference range was not used to interpr et this result as normal/abnormal . Squamous epithelial 0-5 See_Comment [Automa jose cells, UA (test code message ] The = 25670-9) system which generated this result transmitted reference range : < OR = 5 /HPF. The reference range was not used to interpr et this result as normal/abnormal . Bacteria, UA (test FEW NONE SEEN /HPF A code = 5769-5) Calcium oxalate MODERATE NONE OR FEW A crystals, UA (test /HPF code = 58769-1) Hyaline casts, UA NONE SEEN NONE SEEN /LPF (test code = 5796-8) Note: (test code = This urin e was 8251-1) analyzed for th e presence of WBC , RBC, bacteria, casts, and othe r formed elements . Only those elements seen were reported. Specific gravity, TNP TEST(S) N OT urine (test code = PERFORMED : 5811-5) SPECIFIC GRAVIT Y PH GLUCOSE BILIRUBIN KETON ES OCCULT BLOOD PROTEIN NITRITE LEUKOCYTE ESTERASE TEST N OT PERFORMED Unabl e to perform testingdue to color interference. RAC (test code = Performing RAC) Organization Information: Site ID: RGA Name: [facility] Address: [address] [place] [address] Director: Carl Damico Lab Interpretation Abnormal (test code = 62959-4) [facility] with [id number] 11:16:00 Test Item Value Reference Range Interpretation Comments Color, UA (test code GREEN YELLOW A = 5778-6) Appearance (test CLEAR CLEAR code = 5767-9) WBC, UA (test code = 0-5 See_Comment [Autom ated 5821-4) message] The system which generated this result transmitted reference range : < OR = 5 /HPF. The reference range was not used to interpr et this result as normal/abnormal . RBC, UA (test code = NONE SEEN See_Comment [Autom ated 96472-1) message] The system which generated this result transmitted reference range : < OR = 2 /HPF. The reference range was not used to interpr et this result as normal/abnormal . Squamous epithelial 0-5 See_Comment [Automa jose cells, UA (test code message ] The = 85260-6) system which generated this result transmitted reference range : < OR = 5 /HPF. The reference range was not used to interpr et this result as normal/abnormal . Bacteria, UA (test FEW NONE SEEN /HPF A code = 5769-5) Calcium oxalate MODERATE NONE OR FEW A crystals, UA (test /HPF code = 65246-6) Hyaline casts, UA NONE SEEN NONE SEEN /LPF (test code = 5796-8) Note: (test code = This urin e was 8251-1) analyzed for th e presence of WBC , RBC, bacteria, casts, and othe r formed elements . Only those elements seen were reported. Specific gravity, TNP TEST(S) N OT urine (test code = PERFORMED : 5811-5) SPECIFIC GRAVIT Y PH GLUCOSE BILIRUBIN KETON ES OCCULT BLOOD PROTEIN NITRITE LEUKOCYTE ESTERASE TEST N OT PERFORMED Unabl e to perform testingdue to color interference. RAC (test code = Performing RAC) Organization Information: Site ID: RGA Name: [facility] Address: [address] [place] [address] Director: Carl Damico Lab Interpretation Abnormal (test code = 94848-7) [facility] with [id number] 11:16:00 Test Item Value Reference Range Interpretation Comments Color, UA (test code GREEN YELLOW A = 5778-6) Appearance (test CLEAR CLEAR code = 5767-9) WBC, UA (test code = 0-5 See_Comment [Autom ated 5821-4) message] The system which generated this result transmitted reference range : < OR = 5 /HPF. The reference range was not used to interpr et this result as normal/abnormal . RBC, UA (test code = NONE SEEN See_Comment [Autom ated 86599-2) message] The system which generated this result transmitted reference range : < OR = 2 /HPF. The reference range was not used to interpr et this result as normal/abnormal . Squamous epithelial 0-5 See_Comment [Automa jose cells, UA (test code message ] The = 70733-0) system which generated this result transmitted reference range : < OR = 5 /HPF. The reference range was not used to interpr et this result as normal/abnormal . Bacteria, UA (test FEW NONE SEEN /HPF A code = 5769-5) Calcium oxalate MODERATE NONE OR FEW A crystals, UA (test /HPF code = 77347-2) Hyaline casts, UA NONE SEEN NONE SEEN /LPF (test code = 5796-8) Note: (test code = This urin e was 8251-1) analyzed for th e presence of WBC , RBC, bacteria, casts, and othe r formed elements . Only those elements seen were reported. Specific gravity, TNP TEST(S) N OT urine (test code = PERFORMED : 5811-5) SPECIFIC GRAVIT Y PH GLUCOSE BILIRUBIN KETON ES OCCULT BLOOD PROTEIN NITRITE LEUKOCYTE ESTERASE TEST N OT PERFORMED Unabl e to perform testingdue to color interference. RAC (test code = Performing RAC) Organization Information: Site ID: RGA Name: [facility] Address: [address] [place] [address] Director: Carl Damico Lab Interpretation Abnormal (test code = 39130-6) [facility] [id number] 03:02:55 Test Item Value Reference Range Interpretation Comments Urine culture Mixed jing Specimen isolate (test <=10-3 col/cc InformationSp ecimen code = 37938-6) Source: [facility] [id number] 03:02:55 Test Item Value Reference Range Interpretation Comments Urine culture Mixed jing Specimen isolate (test <=10-3 col/cc InformationSp ecimen code = 93322-7) Source: [facility] Site: Clean [facility] [id number] 03:02:55 Test Item Value Reference Range Interpretation Comments Urine culture Mixed jing Specimen isolate (test <=10-3 col/cc InformationSp ecimen code = 14345-6) Source: [facility] Site: Clean [facility] [id number] 03:02:55 Test Item Value Reference Range Interpretation Comments Urine culture Mixed jing Specimen isolate (test <=10-3 col/cc InformationSp ecimen code = 32287-6) Source: [facility] Site: Clean [facility] BLADDER SCAN/[id number] 17:48:00 Test Item Value Reference Range Interpretation Comments PVR volume (test code = 5766) [facility]/[id number] 17:48:00 Test Item Value Reference Range Interpretation Comments PVR volume (test code = 5766) 16 ml [facility] BLADDER SCAN/[id number] 17:48:00 Test Item Value Reference Range Interpretation Comments PVR volume (test code = 5766) 16 ml [facility] BLADDER SCAN/[id number] 17:48:00 Test Item Value Reference Range Interpretation Comments PVR volume (test code = 5766) [address] [facility] [place] [id number] 15:33:00 Name: BOBBY MILLS [facility]ly [facility] : 1950 Age/S: 69 / F [address] Unit #: [id number] Loc: [place] [address] Phys: Alfredo Farnsworth DO Acct: [id number] Dis Date: Status:REG CLI PHONE #: [phone] Exam Date: 05/03/2019 1310 FAX #: Reason: PERIPHERAL VASCULAR DISEASE EXAMS: CPT: [id number] [place] [address] Location code: R 16 Arterial Sonogram Lower Extremities In dication: PERIPHERAL VASCULAR DISEASE. Comparison: none. . Technique: Ferguson scale, color flow, and spectral Doppler imaging of the lower extremities was performed. Findings: RIGHT LOWER EXTREMITY: VENICE 1.1. Biphasic and triphasic flow with normal spectral analysis and normal peak systolic and diastolic velocities, is identified in the common femoral, superficial femoral, popliteal, peroneal, anterior tibial, and posterior tibial arteries LEFT LOWER EXTREMITY: VENICE 1.1. Biphasic and triphasic flow with normal spectral analysis and normal peak systolic and diastolic velocities, is identified in the common femoral, superficial femoral, popliteal, peroneal, anterior tibial, and posterior tibial arteries. Impression: 1. No evidence of hemodynamically significant stenosis.. The degree of stenosis is determined by Nascet derived PSV criteria. at 1533 Reported and signed by: Eduin Mills M.D. PAGE 1 Signed Report (CONTINUED) Name: BOBBY MILLS [facility]ly [facility] : 1950 Age/S: 69 / F [address] Unit #: [id number] Loc: [place] [address] Phys: Alfredo Farnsworth DO Acct: [id number] Dis Date: Status: REG CLI PHONE #: [phone] Exam Date: 05/03/2019 1315 FAX #: Reason: PERIPHERAL VASCULAR DISEASE EXAMS: CPT: [id number] [place] [address] (Continued) CC: Alfredo Farnsworth DO Technologist: Tish Gan [facility] Date/Time: 05/03/2019 (1533) Evan PAGE 2 Signed Report Name: BOBBY MILLS [facility] : 1950 Age/S: 69 / F [address] [address] Unit #: [id number] Loc: [place] [address] Phys: Alfredo Farnsworth DO Acct: [id number] Dis Date: Status: REG CLI PHONE #: [phone] Exam Date: 05/03/2019 1315 FAX #: Reason: PERIPHERAL VASCULAR DISEASE EXAMS: CPT: [id number] [place] [address] (Continued) Orig Print D/T: S: 05/03/2019 (1536) Probe: PAGE 3 Signed Report
[2023-03-30 17:27] LABS: Lymphocytes % 30.1 % (15.3-44.8); MCV 88.1 fL (80-100); MPV 7.4 fL (7.6-11.3); Platelets 340 thou/uL (152-406); RBC Red Blood Cell Count 3.29 M/uL (3.86-4.86)
--- NOTE | 2023-03-30 17:27 | RAD REPORT ---
EXAM DESCRIPTION: Pauline Single View03/30/2023 5:08 pm CLINICAL HISTORY: Hypertension. Swelling COMPARISON: 2009 FINDINGS: The lungs appear clear of acute infiltrate. The heart is normal size IMPRESSION: No acute abnormalities displayed
[2023-03-30 17:32] LABS: Protime INR 1.07
[2023-03-30 17:49] LABS: Albumin 3.5 g/dL (3.4-5.0); Bilirubin Direct 0.3 mg/dL (0-0.2); Bilirubin Indirect, Calculated 0.9 mg/dL (0.2-0.8); Bilirubin Total 1.2 mg/dL (0.2-1.0); Protein, Total 6.9 g/dL (6.4-8.2)
--- NOTE | 2023-03-30 18:02 | EDPHYS ---
Physician Documentation [facility] Name: Amanda Cody Age: 73 yrs Sex: Female : 1950 Arrival Date: 03/30/2023 Time: 16:25 Bed 7 Private MD: ED Physician Tera Khan HPI: 03/30 17:19 This 73 yrs old Female presents to ER via Wheelchair with complaints of Muscle Spasms. sp3 17:19 73-year-old female with hypertension, diabetes now presents ED with chief complaint sp3 bilateral lower extremity swelling consistent with fluid overload as per her prior physician. Patient is switching to Dr. Malagon for cardiology and has not yet had an appointment. She denies chest pain, shortness of breath, cough, abdominal pain, nausea, vomiting, diarrhea, prolonged immobilization, or any other signs or symptoms on ROS at this time. Patient has required diuretics in the past but she states that when I take them "I get a UTI". Current swelling episode has been occurring for the last 4 to 5 days. Review of systems otherwise negative.. Historical: - Allergies: 16:33 Neosporin (afj-mme-blkhe); cm10 16:33 PENICILLINS; cm10 - PMHx: 16:33 Back pain; Borderline Diabetes; Hypertensive disorder; cm10 - Immunization history:: Adult Immunizations up to date. - Social history:: Smoking status: Patient denies any tobacco usage or history of. ROS: 17:20 Constitutional: Negative for fever, chills, and weight loss, Eyes: Negative for injury, sp3 pain, redness, and discharge, ENT: Negative for injury, pain, and discharge, Neck: Negative for injury, pain, and swelling, Cardiovascular: Negative for chest pain, palpitations, and edema, Respiratory: Negative for shortness of breath, cough, wheezing, and pleuritic chest pain, Abdomen/GI: Negative for abdominal pain, nausea, vomiting, diarrhea, and constipation, Back: Negative for injury and pain, Skin: Negative for injury, rash, and discoloration, Neuro: Negative for headache, weakness, numbness, tingling, and seizure, Psych: Negative for depression, anxiety, suicide ideation, homicidal ideation, and hallucinations, Allergy/Immunology: Negative for hives, rash, and allergies, Endocrine: Negative for neck swelling, polydipsia, polyuria, polyphagia, and marked weight changes, 17:20 All other systems are negative, Exam: 17:21 Constitutional: This is a well developed, well nourished patient who is awake, alert, sp3 and in no acute distress. Head/Face: Normocephalic, atraumatic. Eyes: Pupils equal round and reactive to light, extra-ocular motions intact. Lids and lashes normal. Conjunctiva and sclera are non-icteric and not injected. Cornea within normal limits. Periorbital areas with no swelling, redness, or edema. ENT: Nares patent. No nasal discharge, no septal abnormalities noted. External auditory canals are clear. Oropharynx with no redness, swelling, or masses, exudates, or evidence of obstruction, uvula midline. Mucous membranes moist. Neck: Trachea midline, no thyromegaly or masses palpated, and no cervical lymphadenopathy. Supple, full range of motion without nuchal rigidity, or vertebral point tenderness. No Meningismus. Chest/axilla: Normal chest wall appearance and motion. Nontender with no deformity. No lesions are appreciated. Cardiovascular: Regular rate and rhythm with a normal S1 and S2. No gallops, murmurs, or rubs. Normal PMI, no JVD. No pulse deficits. Respiratory: Lungs have equal breath sounds bilaterally, clear to auscultation and percussion. No rales, rhonchi or wheezes noted. No increased work of breathing, no retractions or nasal flaring. Abdomen/GI: Soft, non-tender, with normal bowel sounds. No distension or tympany. No guarding or rebound. No evidence of tenderness throughout. Back: No spinal tenderness. No costovertebral tenderness. Full range of motion. Skin: Warm, dry with normal turgor. Normal color with no rashes, no lesions, and no evidence of cellulitis. Neuro: Awake and alert, GCS 15, oriented to person, place, time, and situation. Cranial nerves II-XII grossly intact. Motor strength 5/5 in all extremities. Sensory grossly intact. Cerebellar exam normal. Normal gait. Psych: Awake, alert, with orientation to person, place and time. Behavior, mood, and affect are within normal limits. 17:21 Musculoskeletal/extremity: 3+ pitting edema bilaterally from the lundy down. No popliteal or calf pain noted either leg.. Vital Signs: 16:31 BP 137 / 54; Pulse 73; Resp 16; Temp 97.1; Pulse Ox 100% on R/A; Weight 99.79 kg; cm10 Height 5 ft. 7 in. ; Pain 7/10; 17:39 BP 108 / 51; Pulse 73; Resp 18; Temp 97.1(TE); Pulse Ox 93% on R/A; tm6 16:31 Body Mass Index 34.46 (99.79 kg, 170.18 cm) cm10 16:31 Pain Scale: Adult cm10 MDM: 16:41 Patient medically screened. sp3 17:21 Data reviewed: vital signs, nurses notes, lab test result(s), EKG, radiologic studies. sp3 ED course: 73-year-old female with peripheral swelling/mild anasarca. Consider dependent edema versus CHF versus anasarca. Laboratory values, chest x-ray and EKG are pending. My recommendation will be Lasix IV and subsequent discharged to follow-up with PCP under cardiology as needed. I am not highly suspicious for acute coronary syndrome, sepsis, shock, DVT/PE spectrum, or any other critical pathology at this time.. 17:57 ED course: Laboratory values are all within normal limits including electrolytes and sp3 BNP. Chest x-ray is clear. EKG demonstrates normal sinus rhythm at 71 bpm with normal intervals, normal QRS, normal axis, normal ST/T segments without evidence of acute ischemia. Given all these findings, I believe patient's symptoms are primarily due to dependent edema. I have advised her to put her feet up and use gravity to assist and I will also give her 20 mg of Lasix IV and send her home on as needed Lasix 40 mg tabs. She has an appointment to see Dr. Malagon next week.. 12 16:35 Order name: Basic Metabolic Panel; Complete Time: 17:51 sp3 03/30 16:35 Order name: CBC with Diff; Complete Time: 17:29 sp3 03/30 16:35 Order name: LFT's; Complete Time: 17:51 sp3 03/30 16:35 Order name: Magnesium; Complete Time: 17:51 sp3 03/30 16:35 Order name: NT PRO-BNP; Complete Time: 17:51 sp3 03/30 16:35 Order name: PT-INR; Complete Time: 17:42 sp3 03/30 16:35 Order name: Troponin HS; Complete Time: 17:51 sp3 03/30 16:35 Order name: XRAY Chest (1 view); Complete Time: 17:29 sp3 03/30 16:35 Order name: EKG; Complete Time: 16:36 sp3 03/30 16:35 Order name: Cardiac monitoring; Complete Time: 16:51 sp3 03/30 16:35 Order name: EKG - Nurse/Tech; Complete Time: 17:49 sp3 03/30 16:35 Order name: IV Saline Lock; Complete Time: 17:26 sp3 03/30 16:35 Order name: Labs collected and sent; Complete Time: 17:26 sp3 03/30 16:35 Order name: O2 Per Protocol; Complete Time: 16:51 sp3 03/30 16:35 Order name: O2 Sat Monitoring; Complete Time: 16:51 sp3 Administered Medications: 18:21 Drug: Furosemide IVP 20 mg IVP once; give over 2 minutes Route: IVP; Site: right hand; tm6 Disposition Summary: 03/30/23 18:01 Discharge Ordered Notes: Location: Home sp3 Condition: Stable sp3 Diagnosis - Generalized edema sp3 Followup: sp3 - With: Private Physician - When: Upon discharge from the Emergency Department - Reason: Continuance of care Discharge Instructions: - Discharge Summary Sheet sp3 - Peripheral Edema sp3 Forms: - Medication Reconciliation Form sp3 - Thank You Letter sp3 - Antibiotic Education sp3 - Prescription Opioid Use sp3 - Patient Portal Instructions sp3 - Leadership Thank You Letter sp3 Prescriptions: - Lasix 20 mg Oral tablet - take 1 tablet ORAL route once daily; 20 tablet; Refills: 0, Product Selection sp3 Permitted Signatures: Dispatcher [employer] Tera Hernandez MD MD sp3 Anni Bhatt RN RN cm10 Lloyd Perry RN RN tm6
--- NOTE | 2023-03-30 18:02 | ER ---
Nurse's Notes [facility] Name: Amanda Cody Age: 73 yrs Sex: Female : 1950 Arrival Date: 03/30/2023 Time: 16:25 Bed 7 Private MD: Diagnosis: Generalized edema Presentation: 03/30 16:31 Chief complaint: Patient states: For the last few weeks she has had bilateral feet cm10 swelling and muscle cramps to different parts of her body. 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 Coronavirus screen: Vaccine status: Patient reports receiving the 2nd dose of the covid vaccine. Client denies travel out of the [place] in the last 14 days. Ebola Screen: Patient denies travel to an Ebola-affected area in the 21 days before illness onset. No symptoms or risks identified at this time. Initial Sepsis Screen: Does the patient meet any 2 criteria? No. Patient's initial sepsis screen is negative. Does the patient have a suspected source of infection? No. Patient's initial sepsis screen is negative. Risk Assessment: Do you want to hurt yourself or someone else? Patient reports no desire to harm self or others. Onset of symptoms was March 30, 2023. 16:31 Method Of Arrival: Wheelchair cm10 16:31 Acuity: SIMRAN 3 cm10 Historical: - Allergies: 16:33 Neosporin ([id number]); cm10 16:33 PENICILLINS; cm10 - PMHx: 16:33 Back pain; Borderline Diabetes; Hypertensive disorder; cm10 - Immunization history:: Adult Immunizations up to date. - Social history:: Smoking status: Patient denies any tobacco usage or history of. Screenin:40 [facility] ED Fall Risk Assessment (Adult) History of falling in the last 3 months, tm6 including since admission No falls in past 3 months (0 pts). Abuse screen: Denies threats or abuse. Denies injuries from another. Nutritional screening: No deficits noted. Tuberculosis screening: No symptoms or risk factors identified. Assessment: 17:38 General: Appears in no apparent distress. Behavior is calm, cooperative. Pain: Denies tm6 pain. Neuro: Level of Consciousness is awake, alert, obeys commands. Cardiovascular: Capillary refill < 3 seconds Patient's skin is warm and dry. Cardiovascular: Parent/caregiver reports patient has had pedal edema. Respiratory: Airway is patent Respiratory effort is even, unlabored, Respiratory pattern is regular, symmetrical. GI: Abdomen is round non-distended. : No signs and/or symptoms were reported regarding the genitourinary system. EENT: No signs and/or symptoms were reported regarding the EENT system. Derm: No signs and/or symptoms reported regarding the dermatologic system. Musculoskeletal: No signs and/or symptoms reported regarding the musculoskeletal system. Vital Signs: 16:31 BP 137 / 54; Pulse 73; Resp 16; Temp 97.1; Pulse Ox 100% on R/A; Weight 99.79 kg; cm10 Height 5 ft. 7 in. ; Pain 7/10; 17:39 BP 108 / 51; Pulse 73; Resp 18; Temp 97.1(TE); Pulse Ox 93% on R/A; tm6 16:31 Body Mass Index 34.46 (99.79 kg, 170.18 cm) cm10 16:31 Pain Scale: Adult cm10 ED Course: 16:27 Patient arrived in ED. rg4 16:28 Tera Khan MD is Attending Physician. sp3 16:33 Triage completed. cm10 16:34 Arm band placed on Patient placed in an exam room, on a stretcher. cm10 16:44 Lloyd Perry, RN is Primary Nurse. tm6 17:10 XRAY Chest (1 view) In Process Unspecified. EDMS 17:18 Initial lab(s) drawn, by me, sent to lab. em1 17:18 Inserted saline lock: 22 gauge in right hand, using aseptic technique. Blood collected. em1 17:40 Patient has correct armband on for positive identification. Bed in low position. Call tm6 light in reach. Side rails up X2. Provided Education on: need for VS monitoring. Client placed on continuous cardiac and pulse oximetry monitoring. NIBP monitoring applied. quality assurance monitor on. Door closed. Noise minimized. 17:40 No provider procedures requiring assistance completed. tm6 18:22 IV discontinued, intact, bleeding controlled, No redness/swelling at site. Pressure tm6 dressing applied. Administered Medications: 18:21 Drug: Furosemide IVP 20 mg IVP once; give over 2 minutes Route: IVP; Site: right hand; tm6 Medication: 18:22 VIS not applicable for this client. tm6 Outcome: 18:01 Discharge ordered by . [email or web address] 18:21 Discharged to home via wheelchair, with family, tm6 18:21 Condition: stable 18:21 Discharge instructions given to patient, family, Instructed on discharge instructions, follow up and referral plans. medication usage, Demonstrated understanding of instructions, follow-up care, medications, Prescriptions given X 1, 18:22 Patient left the ED. tm6 Signatures: Dispatcher [employer] Rohit Rene em1 Brandy Daley rg4 Tera Khan MD MD sp3 Anni Bhatt, RN RN cm10 Lloyd Perry RN RN tm6
[2023-03-30] MEDS ORDERED: FUROSEMIDE 20 MG/ 2ML VIAL ONE (18:24)
[2023-03-30 18:27] VITALS: TEMP 97.1
[2023-03-30 18:28] VITALS: BP 108/51; O2SAT 93
== END 2023-03-30 18:22 | disposition home or self-care (01) ==
LOC: ER 16:25
DX: R60.1 Generalized edema (principal); I10 Essential (primary) hypertension; Z88.0 Allergy status to penicillin; Z88.3 Allergy status to other anti-infective agents
CPT/HCPCS: 93005; 85025; 80048; 36415; 83735; 85610; 80076; 84484; 83880; 71045; 96374; 99285; J1940

== ENCOUNTER 2023-04-02 20:07 | Emergency (ER) | payer OTHER ==
[2023-04-02 20:56] LABS: Absolute Lymphocytes (CBC) 3.9 K/uL (0.7-4.9); Hematocrit 27.6 % (36.0-45.0); Lymphocytes % 35.1 % (15.3-44.8); MCV 90.4 fL (80-100); MPV 7.7 fL (7.6-11.3); Platelets 331 thou/uL (152-406); RBC Red Blood Cell Count 3.05 M/uL (3.86-4.86)
[2023-04-02 20:57] LABS: Protime INR 1.19
[2023-04-02 21:18] LABS: Troponin High Sensitivity 6.1 pg/mL (<58.9)
[2023-04-02 21:22] LABS: Magnesium 1.9 mg/dL (1.6-2.4); Potassium 3.5 mEq/L (3.5-5.1)
--- NOTE | 2023-04-02 21:41 | RAD REPORT ---
EXAM DESCRIPTION: RAD - Chest Single View - 04/02/2023 9:35 pm CLINICAL HISTORY: edema Chest pain. COMPARISON: <Comparisons> FINDINGS: Portable technique limits examination quality. The lungs are grossly clear. The heart is mildly enlarged. No displaced fractures. IMPRESSION: No acute intrathoracic process suspected.
--- NOTE | 2023-04-02 22:01 | RAD REPORT ---
EXAM DESCRIPTION: US - Extrem Venous W Compress Farzad - 04/02/2023 9:38 pm CLINICAL HISTORY: Pain;Swelling Bilateral leg edema and swelling. COMPARISON: No comparisons TECHNIQUE: Real-time sonographic interrogation of the left and right lower extremity deep venous sys tems was performed. FINDINGS: Normal compressibility, flow augmentation, phasic flow and spontaneous flow is identified in both the left and right lower extremity deep venous systems. IMPRESSION: No sonographic evidence of left or right lower extremity deep venous thrombosis.
--- NOTE | 2023-04-02 22:03 | RAD REPORT ---
EXAM DESCRIPTION: US - Lower Extremity Arterial Bilat - 04/02/2023 9:38 pm CLINICAL HISTORY: Pain;Swelling COMPARISON: No comparisons TECHNIQUE: Bilateral lower extremity arterial Doppler examination was performed. FINDINGS: Triphasic waveforms are seen throughout both lower extremity arterial systems to the level of the [place] pedis arteries. Soft tissue edema is present in the left foot. No high-grade stenosis or occlusion seen. IMPRESSION: No evidence of significant peripheral vascular disease.
[2023-04-02] MEDS ORDERED: POTASSIUM 25 MEQ EFFERV TAB ONE (22:50)
[2023-04-02] MEDS ORDERED: KETOROLAC 30 MG/ML INJ ONE (22:50)
[2023-04-02] MEDS ORDERED: LORazepam 2 MG/ML VIAL ONE (23:18)
[2023-04-03] MEDS ORDERED: NA CHLORIDE 0.9% 100 ML ONE (00:17)
[2023-04-03] MEDS ORDERED: METHOCARBAMOL 1,000 MG/10 ML VIAL ONE (00:17)
--- NOTE | 2023-04-03 00:22 | ER ---
Nurse's Notes [facility] Name: Amanda Cody Age: 73 yrs Sex: Female : 1950 Arrival Date: 04/02/2023 Time: 20:07 Bed 6 Private MD: Diagnosis: Generalized edema;Muscle Spasms and Cramps;Anemia, unspecified Presentation: 04/02 20:29 Chief complaint: Patient states: I have been having bad swelling in my feet that had kd3 been going on for about a month. 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 Leonard. Since Wednesday, I started having severe cramping and nausea with headaches. Coronavirus screen: Vaccine status: Patient reports receiving the 2nd dose of the covid vaccine. Ebola Screen: No symptoms or risks identified at this time. Initial Sepsis Screen: Does the patient meet any 2 criteria? No. Patient's initial sepsis screen is negative. Does the patient have a suspected source of infection? No. Patient's initial sepsis screen is negative. Risk Assessment: Do you want to hurt yourself or someone else? Patient reports no desire to harm self or others. Onset of symptoms was April 02, 2023. 20:29 Method Of Arrival: Wheelchair kd3 20:29 Acuity: SIMRAN 3 kd3 Triage Assessment: 20:32 General: Appears uncomfortable, Behavior is calm, cooperative. Pain: Complains of pain kd3 in back, right leg and left leg. GI: Reports nausea. Historical: - Allergies: 20:32 Neosporin ([id number]); kd3 20:32 PENICILLINS; kd3 - PMHx: 20:32 Back pain; Borderline Diabetes; Hypertensive disorder; kd3 - Immunization history:: Adult Immunizations up to date. - Social history:: Smoking status: Patient denies any tobacco usage or history of. Screenin:[address] [facility] ED Fall Risk Assessment (Adult) History of falling in the last 3 months, jw7 including since admission No falls in past 3 months (0 pts) Score/Fall Risk Level 0 - 2 = Low Risk Oriented to surroundings, Maintained a safe environment. Abuse screen: Denies threats or abuse. Denies injuries from another. Nutritional screening: No deficits noted. Tuberculosis screening: No symptoms or risk factors identified. Vital Signs: 20:34 Temp 98.2(O); Weight 99.79 kg; Height 5 ft. 77 in. ; kd3 12 01:08 BP 132 / 66; Pulse 70; Resp 14; Temp 98; Pulse Ox 99% ; rv 12 20:34 Body Mass Index 8.24 (99.79 kg, 347.98 cm) kd3 [place] Coma Score: 01:08 Eye Response: spontaneous(4). Motor Response: obeys commands(6). Verbal Response: rv oriented(5). Total: 15. ED Course: 04/02 20:15 Patient arrived in ED. gm2 20:17 [facility] cp 20:17 Kirby Soares MD is Attending Physician. cp 20:32 Triage completed. kd3 20:32 Arm band placed on right wrist. kd3 20:46 Patient has correct armband on for positive identification. Bed in low position. Call jw7 light in reach. 20:46 EKG done, by ED staff, reviewed by Kirby FATIMA. jw7 20:46 Initial lab(s) drawn, by ED staff, sent to lab. Inserted saline lock: 20 gauge in right jw7 antecubital area, using aseptic technique. Blood collected. 21:37 XRAY Chest (1 view) In Process Unspecified. EDMS 21:40 US Lower Extremity Arterial Bilateral In Process Unspecified. EDMS 21:40 US Extremity Venous W Compression Farzad In Process Unspecified. EDMS 04/03 01:09 No provider procedures requiring assistance completed. IV discontinued, intact, rv bleeding controlled, No redness/swelling at site. Pressure dressing applied. Administered Medications: 04/02 22:43 Drug: Potassium PO Effervescent Tablet 25 mEq PO once; dissolve in 4 ounces of water or jw7 juice Route: PO; 04/03 01:10 Follow up: Response: No adverse reaction rv 04/02 22:43 Drug: Ketorolac IVP 15 mg IVP once Route: IVP; Site: right antecubital; jw7 04/03 01:10 Follow up: Response: No adverse reaction rv 04/02 23:05 Drug: Ativan IVP 1 mg IVP once Route: IVP; Site: right antecubital; jw7 04/03 01:09 Follow up: Response: No adverse reaction rv 00:07 Drug: Methocarbamol IVPB 1 grams IVPB once over 1 hrs; (mix in NS 100 mL) Route: IVPB; rv Infused Over: 1 hrs; Site: right antecubital; 01:09 Follow up: IV Status: Completed infusion; IV Intake: 1000ml rv Intake: 01:09 IV: 1000ml; Total: 1000ml. rv Outcome: 00:22 Discharge ordered by . nery 01: Discharged to home ambulatory, with family, rv 01: Condition: good 01:09 Discharge instructions given to patient, family, Instructed on discharge instructions, follow up and referral plans. medication usage, Demonstrated understanding of instructions, follow-up care, medications, Prescriptions given X 1, 01:10 Patient left the ED. rv Signatures: Dispatcher [employer] EDMS Kirby Augustine PA PA cp Vicente, Ronaldo RN RN rv Silvia Delacruz RN RN kd3 Kathleen Silva RN RN jw7 Carolina Sandoval 2
--- NOTE | 2023-04-03 00:23 | EDPHYS ---
Physician Documentation [facility] Name: Amanda Cody Age: 73 yrs Sex: Female : 1950 Arrival Date: 04/02/2023 Time: 20:07 Bed 6 Private MD: ED Physician Kirby Soares HPI: 04/02 21:00 This 73 yrs old Female presents to ER via Wheelchair with complaints of Abdominal Pain, cp Headache, Leg Swelling. 21:00 The patient presents with abdominal cramps, lower extremity cramps. Onset: The cp symptoms/episode began/occurred chronically. Associated signs and symptoms: Pertinent positives: swelling of lower legs, difficulty sleeping, Pertinent negatives: chest pain, diarrhea, fever, shortness of breath, vomiting. The symptoms are described as crampy. Severity of pain: in the emergency department the pain has improved mildly. The patient has experienced similar episodes in the past, chronically. Historical: - Allergies: 20:32 Neosporin ([id number]); kd3 20:32 PENICILLINS; kd3 - PMHx: 20:32 Back pain; Borderline Diabetes; Hypertensive disorder; kd3 - Immunization history:: Adult Immunizations up to date. - Social history:: Smoking status: Patient denies any tobacco usage or history of. ROS: 21:05 Constitutional: Negative for body aches, chills, fever, poor PO intake, cp 21:05 Eyes: Negative for injury, pain, redness, and discharge, cp 21:05 ENT: Negative for drainage from ear(s), ear pain, sore throat, difficulty swallowing, difficulty handling secretions, 21:05 Cardiovascular: Positive for edema, Negative for chest pain, palpitations, 21:05 Respiratory: Positive for shortness of breath, 21:05 Abdomen/GI: Positive for abdominal cramps, 21:05 Back: Positive for pain at rest, pain with movement, 21:05 Skin: Negative for rash, 21:05 Neuro: Positive for headache, Negative for altered mental status, weakness, 21:05 All other systems are negative, Exam: 21:05 Head/Face: Normocephalic, atraumatic. cp 21:05 Constitutional: The patient appears in no acute distress, alert, awake, non-diaphoretic, non-toxic, well developed, well nourished, obese, uncomfortable, 21:05 Eyes: Periorbital structures: appear normal, Conjunctiva: normal, no exudate, no injection, Sclera: no appreciated abnormality, Lids and lashes: appear normal, 21:05 ENT: External ear(s): are unremarkable, Nose: is normal, Mouth: Lips: moist, Oral mucosa: pink and intact, moist, Posterior pharynx: is normal, airway is patent, no erythema, no exudate, 21:05 Neck: ROM/movement: is normal, is supple, without pain, no range of motions limitations, 21:05 Chest/axilla: Inspection: normal, 21:05 Cardiovascular: Rate: normal, Rhythm: regular, Edema: pedal edema, that is moderate, ankle edema, that is moderate, JVD: is not appreciated, 21:05 Respiratory: the patient does not display signs of respiratory distress, Respirations: normal, no use of accessory muscles, no retractions, labored breathing, is not present, Breath sounds: are clear throughout, no decreased breath sounds, no stridor, no wheezing, 21:05 Abdomen/GI: Inspection: abdomen appears normal, Palpation: soft, in all quadrants, mild abdominal tenderness, in all quadrants, 21:05 Back: pain, 21:05 Skin: cellulitis, is not appreciated, no rash present. 21:05 Neuro: Orientation: to person, place \T\ time. Mentation: is normal, Motor: moves all fours, strength is normal, Vital Signs: 20:34 Temp 98.2(O); Weight 99.79 kg; Height 5 ft. 77 in. ; kd3 12 01:08 BP 132 / 66; Pulse 70; Resp 14; Temp 98; Pulse Ox 99% ; rv 12/08 20:34 Body Mass Index 8.24 (99.79 kg, 347.98 cm) kd3 [place] Score: 01:08 Eye Response: spontaneous(4). Motor Response: obeys commands(6). Verbal Response: rv oriented(5). Total: 15. MDM: 12 20:17 Patient medically screened. 04/03 00:20 Data reviewed: vital signs, nurses notes, lab test result(s), EKG, radiologic studies, plain films, ultrasound. 00:20 I considered the following discharge prescriptions or medication management in the emergency department Medications were administered in the Emergency Department. See MAR. Independent interpretation of the following test(s) in the Emergency Department EKG: See my EKG interpretation above. Care significantly affected by the following chronic conditions: Hypertension, Obesity. Counseling: I had a detailed discussion with the patient and/or guardian regarding the historical points, exam findings, and any diagnostic results supporting the discharge/admit diagnosis, lab results, the need for outpatient follow up, a family practitioner, to return to the emergency department if symptoms worsen or persist or if there are any questions or concerns that arise at home. Response to treatment: the patient's symptoms have markedly improved after treatment, and as a result, I will discharge patient. 04/02 20:33 Order name: Basic Metabolic Panel; Complete Time: 21:29 04/02 21:29 Interpretation: Normal except: GLUC 128; CRE 1.24; GFR 45; CA 8.4. 04/02 20:33 Order name: CBC with Diff; Complete Time: 21:16 04/02 21:16 Interpretation: Normal except: WBC 11.20; RBC 3.05; HGB 9.0; HCT 27.6; RDW 16.1; BASO% cp 1.4. 04/02 20:33 Order name: Magnesium; Complete Time: 21:29 04/02 20:33 Order name: NT PRO-BNP; Complete Time: 21:29 04/02 20:33 Order name: PT-INR; Complete Time: 21:16 04/02 20:33 Order name: Troponin HS; Complete Time: 21:29 04/02 20:34 Order name: CK; Complete Time: 21:29 04/02 20:33 Order name: XRAY Chest (1 view); Complete Time: 22:12 04/02 20:36 Order name: US Lower Extremity Arterial Bilateral; Complete Time: 22:12 12 20:36 Order name: US Extremity Venous W Compression Farzad; Complete Time: 22:12 04/02 20:33 Order name: EKG; Complete Time: 20:34 04/02 20:33 Order name: Cardiac monitoring; Complete Time: 20:47 04/02 20:33 Order name: EKG - Nurse/Tech; Complete Time: 20:47 04/02 20:33 Order name: IV Saline Lock; Complete Time: 20:47 cp 04/02 20:33 Order name: Labs collected and sent; Complete Time: 20:47 cp 04/02 20:33 Order name: O2 Per Protocol; Complete Time: 20:35 cp 04/02 20:33 Order name: O2 Sat Monitoring; Complete Time: 20:35 cp Administered Medications: 04/02 22:43 Drug: Potassium PO Effervescent Tablet 25 mEq PO once; dissolve in 4 ounces of water or jw7 juice Route: PO; 04/03 01:10 Follow up: Response: No adverse reaction rv 04/02 22:43 Drug: Ketorolac IVP 15 mg IVP once Route: IVP; Site: right antecubital; jw7 04/03 01:10 Follow up: Response: No adverse reaction rv 04/02 23:05 Drug: Ativan IVP 1 mg IVP once Route: IVP; Site: right antecubital; jw7 04/03 01:09 Follow up: Response: No adverse reaction rv 00:07 Drug: Methocarbamol IVPB 1 grams IVPB once over 1 hrs; (mix in NS 100 mL) Route: IVPB; rv Infused Over: 1 hrs; Site: right antecubital; 01:09 Follow up: IV Status: Completed infusion; IV Intake: 1000ml rv Disposition Summary: 04/03/23 00:22 Discharge Ordered Notes: Location: Home cp Problem: an ongoing problem cp Symptoms: have improved cp Condition: Stable cp Diagnosis - Generalized edema cp - Muscle Spasms and Cramps cp - Anemia, unspecified cp Followup: cp - With: Private Physician - When: 2 - 3 days - Reason: Recheck today's complaints Discharge Instructions: - Discharge Summary Sheet cp - Anemia cp - Edema cp - Muscle Cramps and Spasms cp - Muscle Pain, Adult cp Forms: - Medication Reconciliation Form cp - Thank You Letter cp - Antibiotic Education cp - Prescription Opioid Use cp - Patient Portal Instructions cp - Leadership Thank You Letter cp Prescriptions: - methocarbamol 750 mg Oral tablet - take 1 tablet ORAL route 3 times per day; 30 tablet; Refills: 0, Product cp Selection Permitted Signatures: Dispatcher [employer] Kirby Varela PA PA cp Vicente, Ronaldo RN RN Silvia Tripp RN RN kd3 Waits, Kathleen, RN RN jw7
[2023-04-03 01:15] VITALS: BP 132/66; TEMP 98; O2SAT 99
--- NOTE | 2023-04-06 13:55 | EKG ---
Test Date: 2023-04-02 Test Time: 20:41:50 Link Knitting Machine Operator: RAGHAVENDRA MEASUREMENT RESULTS: Intervals: Rate: 68 MS: 166 QRSD: 92 QT: 438 QTc: 465 [place]: P: 33 MS: 166 QRS: 18 T: 30 INTERPRETIVE STATEMENTS: Normal sinus rhythm Normal ECG Compared to ECG 03/30/2023 17:46:25 Left ventricular hypertrophy no longer present Myocardial infarct finding no longer present Electronically Signed On 04-06-23 13:43:06 TELEPATHIST by Mirza Malagon
== END 2023-04-03 01:10 | disposition home or self-care (01) ==
LOC: ER 20:07
DX: R25.2 Cramp and spasm (principal); R60.1 Generalized edema; D64.9 Anemia, unspecified; I10 Essential (primary) hypertension; E11.9 Type 2 diabetes mellitus without complications; Z88.0 Allergy status to penicillin; Z88.3 Allergy status to other anti-infective agents
CPT/HCPCS: 96365; 93005; 85025; 80048; 36415; 83735; 82550; 85610; 84484; 83880; 71045; 93925; 93970; 96375; 99284; J2800